=== PATIENT | female | born 1985 | race Asian ===

== ENCOUNTER 2019-12-30 11:36 | Outpatient (CLI) | payer SELFPAY ==
--- NOTE | 2019-12-30 17:04 | Ultrasound Report ---
Reason: TEST POSTIVE Procedure Date: 12/30/2019 Accession Number: [id number] / [id number] Procedure: US - OB First Trimester CPT Code: Final Report FULL RESULT: EXAM: FIRST TRIMESTER OBSTETRIC ULTRASOUND (Less than 11 weeks) EXAM DATE: 12/30/2019 11:45 AM. CLINICAL HISTORY: test positive. LMP: 10/21/2019. COMPARISONS: None. TECHNIQUE: Transabdominal and transvaginal ultrasound examination with static image documentation. CLINICAL DATES: EGA 10 weeks 0 days with MATEO 07/27/2020 based on LMP. ASSESSMENT: Gestational Sac: Single intrauterine. Mean gestational sac diameter: 35.9 mm = 8 weeks 6 days. Embryo: CRL (crown-rump length) 21 mm = 8 weeks 5 days. Cardiac activity: 171 beats per minute. Yolk sac: 3.9 mm. Amniotic fluid: Not accurately assessed at this gestational age. Early placenta: Not visible at this gestational age. Other: No perigestational fluid collection demonstrated. MATERNAL STRUCTURES: Uterus: Anteverted. Unremarkable. Cervix: Closed. Right Ovary/Adnexa: The ovary measures 3.4 x 2.5 x 2.2 cm, volume 9.8 cc. An echogenic structure in the ovary measures 1.4 x 1.1 x 1 cm. Left Ovary/Adnexa: The ovary measures 3.4 x 2.3 x 2 cm, volume 8.2 cc. Unremarkable. Free Fluid: None. Other: None. IMPRESSION: 1. Single viable intrauterine at EGA 8 weeks 5 days with MATEO 08/05/2020 based on crown-rump length, which is 1 week and 2 days discordant from clinical dates. 2. Assigned dating is MATEO 07/27/2020 based on LMP. 3. There is a 1.4 cm echogenic structure in the right ovary for which attention on follow-up is suggested. RADIA
== END 2019-12-30 11:37 | disposition home or self-care (01) ==
LOC: DI 11:36
PROVIDERS: ATTEND Obstetrics & Gynecology
DX: O34.81 Maternal care for other abnormalities of pelvic organs, first trimester (principal); N83.9 Noninflammatory disorder of ovary, fallopian tube and broad ligament, unspecified; Z3A.08 8 weeks gestation of pregnancy
CPT/HCPCS: 76801; 76817

== ENCOUNTER 2020-01-04 07:00 | Outpatient (CLI) | payer SELFPAY ==
[2020-01-04 20:54] LABS: TRICHOMONAS VAGINALIS DNA NEGATIVE (NEGATIVE)
== END 2020-01-04 23:59 | disposition home or self-care (01) ==
LOC: LAB.R 07:00
PROVIDERS: ATTEND Obstetrics & Gynecology
DX: Z34.90 Encounter for supervision of normal pregnancy, unspecified, unspecified trimester (principal)
CPT/HCPCS: 87491; 87591; 87661

== ENCOUNTER 2020-01-04 08:00 | Outpatient (CLI) | payer SELFPAY ==
[2020-01-04 11:49] LABS: MUDS CUTOFF CONCENTRATIONS CUTOFF CONC BELOW:
[2020-01-04 14:00] LABS: BASOPHILS # (AUTO) 0.1 10^3/uL (0.0-0.1); BASOPHILS % (AUTO) 0.4 %; EOSINOPHILS # (AUTO) 0.1 10^3/uL (0.0-0.7); EOSINOPHILS % (AUTO) 1.1 %; HGB - HEMOGLOBIN 13.1 g/dL (12.0-16.0); LYMPHOCYTES # (AUTO) 2.7 10^3/uL (1.5-3.5); LYMPHOCYTES % (AUTO) 20.4 %; MEAN CORPUSCULAR HEMOGLOBIN 27.9 pg (27.0-31.0); MEAN CORPUSCULAR HGB CONC 32.4 g/dL (32.0-36.0); MEAN CORPUSCULAR VOLUME 86.1 fL (81.0-99.0); MEAN PLATELET VOLUME 10.7 fL (7.9-10.8); MONOCYTES % (AUTO) 7.6 %; NEUTROPHILS # (AUTO) 9.3 10^3/uL (1.5-6.6); PLT - PLATELET COUNT 253 10^3/uL (130-450); RED BLOOD COUNT 4.69 10^6/uL (4.20-5.40); RED CELL DISTRIBUTION WIDTH 14.5 % (12.0-15.0); WHITE BLOOD COUNT 13.2 x10^3/uL (4.8-10.8)
[2020-01-04 14:35] LABS: BILIRUBIN,URINE NEGATIVE (NEGATIVE); GLUCOSE, URINE (UA) NEGATIVE (NEGATIVE); KETONES,URINE (UA) 15 mg/dL (NEGATIVE); LEUKOCYTE ESTERASE, URINE NEGATIVE (NEGATIVE); NITRITE,URINE NEGATIVE (NEGATIVE); OCCULT BLOOD,URINE MODERATE (NEGATIVE); PROTEIN,URINE NEGATIVE (NEGATIVE); UROBILINOGEN,URINE 0.2 (NORMAL) E.U./dL (NORMAL)
[2020-01-04 14:38] LABS: CLARITY,URINE CLEAR (CLEAR)
[2020-01-04 14:51] LABS: AMPHETAMINE SCREEN,URINE NEGATIVE (NEGATIVE); BENZODIAZEPINES SCREEN, URINE NEGATIVE (NEGATIVE); COCAINE SCREEN URINE NEGATIVE (NEGATIVE); METHADONE SCREEN, URINE NEGATIVE (NEGATIVE); METHAMPHETAMINES SCREEN, URINE NEGATIVE (NEGATIVE); OPIATE SCREEN, URINE NEGATIVE (NEGATIVE); OXYCODONE SCREEN, URINE NEGATIVE (NEGATIVE); PROPOXYPHENE SCREEN, URINE NEGATIVE (NEGATIVE); TRICYCLIC ANTIDEPRESSANT,URINE NEGATIVE (NEGATIVE)
[2020-01-04 14:54] LABS: BACTERIA,URINE Few /HPF (None Seen); RBC,URINE 0-5 /HPF (0-5); SQUAMOUS EPITHELIAL CELL,UR FEW Squamous (<= Few)
[2020-01-04 15:20] LABS: HB2 TOTAL 13.8 g/dL; HEMOGLOBIN A1C 0.47 g/dL; HEMOGLOBIN A1C % 5.3 % (4.6-6.2)
[2020-01-05 10:14] LABS: HIV AG/AB 4TH GEN NON-REACTIVE (NON-REACTIVE)
[2020-01-05 11:24] LABS: HEPATITIS B SURFACE ANTIGEN NON-REACTIVE (NON-REACTIVE)
[2020-01-05 12:10] LABS: HEPATITIS C ANTIBODY NON-REACTIVE (NON-REACTIVE)
== END 2020-01-04 23:59 | disposition home or self-care (01) ==
LOC: LAB.WCP 08:00
PROVIDERS: ATTEND Obstetrics & Gynecology
DX: O99.280 Endocrine, nutritional and metabolic diseases complicating pregnancy, unspecified trimester (principal); E28.2 Polycystic ovarian syndrome; Z3A.00 Weeks of gestation of pregnancy not specified
CPT/HCPCS: 36415; 80306; 81001; 81599; 83036; 85025; 86592; 86762; 86803; 86850; 86900; 86901; 87086; 87340; 87389

== ENCOUNTER 2020-02-28 16:55 | Outpatient (CLI) | payer OTHER | END 2020-02-28 16:56 | disposition home or self-care (01) | LOC: LAB 16:55 | PROVIDERS: ATTEND Obstetrics & Gynecology | DX: Z34.90 Encounter for supervision of normal pregnancy, unspecified, unspecified trimester (principal) | CPT/HCPCS: 36415; 81511; 81599 ==

== ENCOUNTER 2020-03-18 12:06 | Outpatient (CLI) | payer OTHER ==
--- NOTE | 2020-03-19 00:05 | Ultrasound Report ---
PROCEDURE: OB Detailed Eval INDICATIONS: SUPERVISION OUTSIDE/PRIOR DATING DATA: Last menstrual period (LMP): 10/21/2019. LMP-based estimated date of delivery (MATEO): 07/27/2020. First dating scan (date and location): 12/30/2019. Estimated date of delivery (MATEO) from first dating scan: 08/05/2020. TECHNIQUE: Real-time scanning was performed of the fetus, with image documentation and biometric measurements. Endovaginal scanning: Not performed. COMPARISON: Ultrasound dated 12/30/2019. FINDINGS: Echogenic lesion in the right ovary measures approximately 15 x 12 x 12 mm, stable in size when dino red to the ultrasound from 12/30/2019, possibly representing a small dermoid cyst. A smaller echogenic lesion in the left ovary measures 6 x 6 x 15 mm and also represent a small dermoid cyst. General: A single living intrauterine gestation is present. Presentation: Cephalic Placenta: Placental position is anterior, without previa. Amniotic fluid index: 17.6 cm, normal for gestational age. heart rate: 137 beats per minute. Maternal cervical canal: 4.9 cm long; normal length is 2.5 cm or more. biometrics: Biparietal diameter: 4.8 cm, 20 weeks 3 days Head circumference: 17.7 cm, 20 weeks 1 day Abdominal circumference: 14.8 cm, 20 weeks 0 day Femur length: 3.3 cm, 20 weeks 1 day Estimated gestational age from initial scan: 20 weeks 0 days. Composite gestational age from present scan: 20 weeks 2 days Estimated weight and percentile: 334 g, 53rd percentile Measurement variability in biometric dating: +/- 10 days from 12-20 weeks gestation, +/- 2 weeks from 20-30 weeks gestation, +/- 3 weeks at 30 weeks gestation or later. Anatomic survey: Neuro: Ventricles are normal at less than 10 mm. Cisterna magna is normal at 3-11 mm. Cerebellum i s normal in size and morphology. Nuchal skin fold: Normal at less than 6 mm between 14 and 20 weeks gestational age. Face: Nose and lips, facial profile are normal. Spine: No evidence for spina bifida. Heart: 4-chambered heart is present. The left or right ventricular outflow tracks are suboptimally visualized. heart rate 136 bpm. Diaphragm: Diaphragm is not evaluated. Stomach: Left-sided stomach is present. Kidneys: No hydronephrosis. Normal is less than 5 mm in 2nd trimester, less than 7 mm in 3rd trimester. Cord: 3 vessel cord has orthotopic insertion. Bladder: Normal in size. Extremities: All 4 extremities are visualized. IMPRESSION: 1. Single live intrauterine with estimated size consistent with dates from first trimester ultrasound. 2. chest and diaphragm not assessed on this exam. In addition, the right and left ventricular outflow tracts are suboptimally visualized. Recommend follow-up examination with attention to these s tructures. 3. Echogenic lesions in the bilateral ovaries are nonspecific but may represent dermoid cysts. The r ight-sided lesion has not significantly changed in size when compared to the prior ultrasound from . Continued attention on follow-up exams is suggested. Reviewed by: Derek Kolb MD on 03/19/2020 12:04 AM PDT Approved by: Derek Kolb MD on 03/19/2020 12:04 AM PDT Station ID: [id number]
== END 2020-03-18 12:07 | disposition home or self-care (01) ==
LOC: DI 12:06
PROVIDERS: ATTEND Obstetrics & Gynecology
DX: Z34.90 Encounter for supervision of normal pregnancy, unspecified, unspecified trimester (principal)
CPT/HCPCS: 76811

== ENCOUNTER 2020-04-20 16:18 | Outpatient (CLI) | payer OTHER ==
--- NOTE | 2020-04-21 09:49 | Ultrasound Report ---
PROCEDURE: OB F/U or Repeat INDICATIONS: SUPERVISION OF NORMAL OUTSIDE/PRIOR DATING DATA: Last menstrual period (LMP): 10/21/2019. LMP-based estimated date of delivery (MATEO): 07/27/2020. First dating scan (date and location): 12/30/2019. Estimated date of delivery (MATEO) from first dating scan: 08/05/2020. TECHNIQUE: Real-time scanning was performed of the fetus, with image documentation and biometric measurements. Endovaginal scanning: Not performed COMPARISON: 03/18/2020 FINDINGS: General: A single living intrauterine gestation is present. Presentation: Cephalic Placenta: Placental position is anterior, without previa. Amniotic fluid index: 18.1 cm, 80th percentile for gestational age. heart rate: 136 beats per minute. Maternal cervical canal: 4.5 cm long; normal length is 2.5 cm or more. Estimated gestational age from initial scan: 24 weeks, 5 days. Other: chest, diaphragm, four-chamber heart, and cardiac outflow tracts were seen on the study and appear within normal. Maternal ovaries redemonstrated small echogenic foci of stable size. IMPRESSION: 1. Normal heart, outflow tracts, and diaphragm. 2. Stable size echogenic foci, one in each ovary, dermoid versus calcification. Reviewed by: Yuliya Walton MD on 04/21/2020 9:48 AM PDT Approved by: Yuliya Walton MD on 04/21/2020 9:48 AM PDT Station ID: [id number]
== END 2020-04-20 16:19 | disposition home or self-care (01) ==
LOC: DI 16:18
PROVIDERS: ATTEND Obstetrics & Gynecology
DX: Z34.90 Encounter for supervision of normal pregnancy, unspecified, unspecified trimester (principal)
CPT/HCPCS: 76816

== ENCOUNTER 2020-05-06 15:32 | Outpatient (CLI) | payer OTHER ==
[2020-05-06 15:57] LABS: BASOPHILS # (AUTO) 0.1 10^3/uL (0.0-0.1); BASOPHILS % (AUTO) 0.3 %; EOSINOPHILS # (AUTO) 0.1 10^3/uL (0.0-0.7); EOSINOPHILS % (AUTO) 0.7 %; HGB - HEMOGLOBIN 11.9 g/dL (12.0-16.0); LYMPHOCYTES # (AUTO) 2.4 10^3/uL (1.5-3.5); LYMPHOCYTES % (AUTO) 16.4 %; MEAN CORPUSCULAR HEMOGLOBIN 29.8 pg (27.0-31.0); MEAN CORPUSCULAR HGB CONC 33.4 g/dL (32.0-36.0); MEAN PLATELET VOLUME 9.6 fL (7.9-10.8); MONOCYTES # (AUTO) 1.1 10^3/uL (0.0-1.0); MONOCYTES % (AUTO) 7.6 %; NEUTROPHILS # (AUTO) 10.7 10^3/uL (1.5-6.6); NEUTROPHILS % (AUTO) 73.2 %; PLT - PLATELET COUNT 234 10^3/uL (130-450); RED CELL DISTRIBUTION WIDTH 13.2 % (12.0-15.0); WHITE BLOOD COUNT 14.7 x10^3/uL (4.8-10.8)
== END 2020-05-06 15:33 | disposition home or self-care (01) ==
LOC: LAB 15:32
PROVIDERS: ATTEND Obstetrics & Gynecology
DX: Z34.90 Encounter for supervision of normal pregnancy, unspecified, unspecified trimester (principal)
CPT/HCPCS: 36415; 85025

== ENCOUNTER 2020-07-05 09:06 | Outpatient (CLI) | payer OTHER ==
--- NOTE | 2020-07-05 10:46 | Ultrasound Report ---
PROCEDURE: OB F/U or Repeat INDICATIONS: GESTATIONAL DIABETES OUTSIDE/PRIOR DATING DATA: Last menstrual period (LMP): 10/21/2019. LMP-based estimated date of delivery (MATEO): 07/27/2020. First dating scan (date and location): 12/30/2019. Estimated date of delivery (MATEO) from first dating scan: 08/05/2020. TECHNIQUE: Real-time scanning was performed of the fetus, with image documentation and biometric measurements. Endovaginal scanning: Not needed COMPARISON: All prior OB ultrasound studies for this . FINDINGS: General: A single living intrauterine gestation is present. Presentation: Vertex Placenta: Placental position is anterior, without previa. Amniotic fluid index: 27.5 cm, polyhydramnios for gestational age. heart rate: 131 beats per minute. Maternal cervical canal: 4.0 cm long; normal length is 2.5 cm or more. biometrics: Biparietal diameter: 9.0 cm, 36 weeks 4 days Head circumference: 32.8 cm, 37 weeks 1 day Abdominal circumference: 31.6 cm, 35 weeks 4 days Femur length: 6.7 cm, 34 weeks 2 days Estimated gestational age from initial scan: 35 weeks 4 days. Composite gestational age from present scan: 35 weeks 4 days Estimated weight and percentile: 2696 g, 47.2 percentile Measurement variability in biometric dating: +/- 10 days from 12-20 weeks gestation, +/- 2 weeks from 20-30 weeks gestation, +/- 3 weeks at 30 weeks gestation or more. Other: No anomaly seen.. IMPRESSION: Appropriate interval growth, no anomaly seen. Polyhydramnios, with current estimated amniotic fluid index at 27.5 cm, at the upper 98th percentile for current gestational age. Findings called to the nurse Garay for the ordering [facility] er. Reviewed by: Delfino Marvin MD on 07/05/2020 10:45 AM PST Approved by: Delfino Marvin MD on 07/05/2020 10:45 AM PST Station ID: [id number]
== END 2020-07-05 09:07 | disposition home or self-care (01) ==
LOC: DI 09:06
PROVIDERS: ATTEND Obstetrics & Gynecology
DX: O40.3XX0 Polyhydramnios, third trimester, not applicable or unspecified (principal); Z3A.35 35 weeks gestation of pregnancy

== ENCOUNTER 2020-07-08 08:00 | Outpatient (CLI) | payer OTHER | END 2020-07-08 23:59 | disposition home or self-care (01) | LOC: LAB.R 08:00 | PROVIDERS: ATTEND Obstetrics & Gynecology | DX: Z36.85 Encounter for antenatal screening for Streptococcus B (principal) | CPT/HCPCS: 87081; 87797 ==

== ENCOUNTER 2020-07-08 10:33 | Outpatient (CLI) | payer OTHER ==
[2020-07-08 11:22] VITALS: BP 122/88
--- NOTE | 2020-07-09 09:29 | PROCEDURE REPORT ---
- HPI Diagnosis/Indication for NST: Gestational Diabetes Current EDU 08/05/20 Gestation 36 Weeks and 0 Days 2 Para 0 Vital Signs Temperature 98.4 F 07/08/20 10:46 Heart Rate 105 H 07/08/20 10:46 Respiratory Rate 16 07/08/20 10:46 Blood Pressure 130/89 H 07/08/20 10:46 O2 Saturation 98 07/08/20 10:46 Temperature 98.4 F 07/08/20 10:46 Heart Rate 105 H 07/08/20 10:46 Respiratory Rate 16 07/08/20 10:46 Blood Pressure 122/88 H 07/08/20 11:22 O2 Saturation 98 07/08/20 10:46 - NST Procedure NST Procedure Start Date 07/08/20 Start Time 10:42 Stop Time 11:42 Vibroacoustic Stimulation Used No Patient States Movement Yes - Results and Plan Findings/Impression: Category 1 NST [place] 2 contractions in 1h Plan: continue surveillance outpatient
== END 2020-07-08 11:55 | disposition home or self-care (01) ==
LOC: WFO 10:33 → FBP 10:35 → WFO 11:55
PROVIDERS: ATTEND Obstetrics & Gynecology
DX: O24.419 Gestational diabetes mellitus in pregnancy, unspecified control (principal); Z3A.36 36 weeks gestation of pregnancy
CPT/HCPCS: 59025

== ENCOUNTER 2020-07-12 14:33 | Outpatient (CLI) | payer OTHER ==
[2020-07-12 14:52] VITALS: BP 123/61
--- NOTE | 2020-07-13 08:41 | PROCEDURE REPORT ---
- HPI Diagnosis/Indication for NST: Gestational Diabetes Current EDU 08/05/20 Gestation 36 Weeks and 4 Days 2 Para 0 Vital Signs Temperature 97.6 F L 07/12/20 14:46 Heart Rate 83 07/12/20 14:46 Respiratory Rate 16 07/12/20 14:46 Blood Pressure 123/61 07/12/20 14:46 O2 Saturation 100 07/12/20 14:46 Temperature 97.6 F L 07/12/20 14:46 Heart Rate 83 07/12/20 14:46 Respiratory Rate 16 07/12/20 14:46 Blood Pressure 123/61 07/12/20 14:46 O2 Saturation 100 07/12/20 14:46 - NST Procedure NST Procedure Start Date 07/12/20 Start Time 14:43 Stop Time 15:24 Vibroacoustic Stimulation Used No Patient States Movement Yes - Results and Plan Findings/Impression: Baseline 125bpm Variability moderate Acceleration present Declelerations absent [place] irritable Impression: type A2GDM Plan: ongoing outpt surveillance
== END 2020-07-12 15:35 | disposition home or self-care (01) ==
LOC: WFO 14:33 → FBP 14:35 → WFO 15:35
PROVIDERS: ATTEND Obstetrics & Gynecology
DX: O24.410 Gestational diabetes mellitus in pregnancy, diet controlled (principal); Z3A.36 36 weeks gestation of pregnancy
CPT/HCPCS: 59025

== ENCOUNTER 2020-07-15 08:49 | Outpatient (CLI) | payer OTHER ==
--- NOTE | 2020-07-15 10:52 | Ultrasound Report ---
PROCEDURE: OB Limited INDICATIONS: WEEKLY conner FOR GESTATIONAL DIABETES OUTSIDE/PRIOR DATING DATA: Last menstrual period (LMP): 10/21/2019. LMP-based estimated date of delivery (MATEO): 07/27/2020. First dating scan (date and location): 12/30/2019. Estimated date of delivery (MATEO) from first dating scan: 08/05/2020. TECHNIQUE: Real-time scanning was performed of the fetus, with image documentation. Endovaginal scanning: Not performed COMPARISON: 12/30/19, 07/05/2020 FINDINGS: A single living intrauterine gestation is present. Presentation: Cephalic Placenta: Placental position is anterior, without previa. Amniotic fluid index: 19.6 cm, 82nd percentile, within normal for gestational age. Largest pocket is 7.9 cm. heart rate: 128 beats per minutes. Maternal cervical canal: 3.9 cm long; normal length is 2.5 cm or more. Estimated gestational age from initial scan: 37 weeks, 0 days. Left renal pelviectasis measuring between 4 and 6 mm. urinary bladder is also fluid-fille d and distended. Bilateral maternal ovarian echogenic foci are redemonstrated IMPRESSION: 1. Single living intrauterine . 2. Amniotic fluid index of 19.6 cm, 82nd percentile for gestational age. Reviewed by: Yuliya Walton MD on 07/15/2020 10:51 AM PST Approved by: Yuliya Walton MD on 07/15/2020 10:51 AM PST Station ID: [id number]
== END 2020-07-15 08:50 | disposition home or self-care (01) ==
LOC: DI 08:49
PROVIDERS: ATTEND Obstetrics & Gynecology
DX: O09.90 Supervision of high risk pregnancy, unspecified, unspecified trimester (principal); O24.419 Gestational diabetes mellitus in pregnancy, unspecified control; Z3A.37 37 weeks gestation of pregnancy

== ENCOUNTER 2020-07-15 09:25 | Outpatient (CLI) | payer OTHER ==
[2020-07-15 10:16] VITALS: BP 137/73
--- NOTE | 2020-07-15 19:34 | PROCEDURE REPORT ---
- HPI Diagnosis/Indication for NST: Gestational Diabetes Current EDU 08/05/20 Gestation 37 Weeks and 0 Days 2 Para 0 Vital Signs Temperature 97.7 F 07/15/20 10:13 Heart Rate 95 07/15/20 10:13 Respiratory Rate 16 07/15/20 10:13 Blood Pressure 137/73 H 07/15/20 10:13 Temperature 97.7 F 07/15/20 10:13 Heart Rate 95 07/15/20 10:13 Respiratory Rate 16 07/15/20 10:13 Blood Pressure 137/73 H 07/15/20 10:13 O2 Saturation - NST Procedure NST Procedure Start Date 07/15/20 Start Time 10:11 Stop Time 10:35 Vibroacoustic Stimulation Used No Patient States Movement Yes - Results and Plan Findings/Impression: [place] 120bpm, noderate LTV, accelspresent, decels absent, toco about q10min A/P: A2GDM, category 1 NST, plan for ongoing outpatient surveillance
== END 2020-07-15 10:40 | disposition home or self-care (01) ==
LOC: WFO 09:25 → FBP 09:27 → WFO 10:40
PROVIDERS: ATTEND Obstetrics & Gynecology
DX: O24.415 Gestational diabetes mellitus in pregnancy, controlled by oral hypoglycemic drugs (principal); Z3A.37 37 weeks gestation of pregnancy; O99.891 Other specified diseases and conditions complicating pregnancy; R03.0 Elevated blood-pressure reading, without diagnosis of hypertension; O09.90 Supervision of high risk pregnancy, unspecified, unspecified trimester; O09.523 Supervision of elderly multigravida, third trimester; Z87.59 Personal history of other complications of pregnancy, childbirth and the puerperium; Z79.84 Long term (current) use of oral hypoglycemic drugs
CPT/HCPCS: 36415; 59025; 80053; 82570; 84156; 85027

== ENCOUNTER 2020-07-15 14:35 | Outpatient (CLI) | payer OTHER ==
[2020-07-15 14:53] LABS: HGB - HEMOGLOBIN 11.8 g/dL (12.0-16.0); MEAN CORPUSCULAR HEMOGLOBIN 29.5 pg (27.0-31.0); MEAN CORPUSCULAR HGB CONC 33.2 g/dL (32.0-36.0); MEAN CORPUSCULAR VOLUME 88.8 fL (81.0-99.0); MEAN PLATELET VOLUME 10.1 fL (7.9-10.8); RED CELL DISTRIBUTION WIDTH 14.4 % (12.0-15.0); WHITE BLOOD COUNT 10.4 x10^3/uL (4.8-10.8)
[2020-07-15 15:04] LABS: ALBUMIN 3.3 g/dL (3.2-5.5); ALBUMIN/GLOBULIN RATIO 0.8 (1.0-2.2); BILIRUBIN,TOTAL 0.3 mg/dL (0.2-1.0); CALCIUM 10.1 mg/dL (8.5-10.3); CREATININE 0.8 mg/dL (0.4-1.0); TOTAL PROTEIN 7.2 g/dL (6.7-8.2)
[2020-07-15 15:22] LABS: CREATININE,URINE 44.3 mg/dL; PROTEIN/CREATININE RATIO,URINE 0.2 (<=0.2)
== END 2020-07-15 14:36 | disposition home or self-care (01) ==
LOC: LAB 14:35
PROVIDERS: ATTEND Obstetrics & Gynecology
DX: R03.0 Elevated blood-pressure reading, without diagnosis of hypertension (principal)
CPT/HCPCS: 36415; 80053; 82570; 84156; 85027

== ENCOUNTER 2020-07-19 14:28 | Outpatient (CLI) | payer OTHER ==
[2020-07-19 14:50] VITALS: BP 138/84
--- NOTE | 2020-07-20 09:17 | PROCEDURE REPORT ---
- HPI Diagnosis/Indication for NST: Gestational Diabetes Current EDU 08/05/20 Gestation 37 Weeks and 4 Days 2 Para 0 Vital Signs Temperature 97.2 F L 07/19/20 14:41 Heart Rate 92 07/19/20 14:41 Respiratory Rate 18 07/19/20 14:41 Blood Pressure 138/84 H 07/19/20 14:41 O2 Saturation 99 07/19/20 14:41 Temperature 97.2 F L 07/19/20 14:41 Heart Rate 92 07/19/20 14:41 Respiratory Rate 18 07/19/20 14:41 Blood Pressure 138/84 H 07/19/20 14:41 O2 Saturation 99 07/19/20 14:41 - NST Procedure NST Procedure Start Date 07/19/20 Start Time 14:38 Stop Time 15:04 Vibroacoustic Stimulation Used Yes Patient States Fet EFM 135 mod mika 15x15 accels no decels TOCO: irritable - Results and Plan Findings/Impression: Pt is a 34 yo at 37+4 wga with GDM here for NST Cat I tracing Cint with twice weekly NST and weelkly MARINA IOL at 39 wga DX: gestational diabetes
== END 2020-07-19 15:10 | disposition home or self-care (01) ==
LOC: WFO 14:28 → FBP 14:30 → WFO 15:10
PROVIDERS: ATTEND Obstetrics & Gynecology
DX: O24.419 Gestational diabetes mellitus in pregnancy, unspecified control (principal); Z3A.37 37 weeks gestation of pregnancy
CPT/HCPCS: 59025

== ENCOUNTER 2020-07-21 11:47 | Outpatient (CLI) | payer OTHER ==
[2020-07-21 12:10] VITALS: BP 123/71
--- NOTE | 2020-07-25 21:07 | PROCEDURE REPORT ---
- HPI Diagnosis/Indication for NST: Gestational Diabetes Current EDU 08/05/20 Gestation 37 Weeks and 6 Days 2 Para 0 Vital Signs Temperature 98.2 F 07/21/20 11:55 Heart Rate 95 07/21/20 11:55 Respiratory Rate 18 07/21/20 11:55 Blood Pressure 127/90 H 07/21/20 11:55 O2 Saturation 100 07/21/20 11:55 Temperature 98.2 F 07/21/20 11:55 Heart Rate 95 07/21/20 11:55 Respiratory Rate 18 07/21/20 11:55 Blood Pressure 123/71 07/21/20 12:09 O2 Saturation 100 07/21/20 11:55 - NST Procedure NST Procedure Start Date 07/21/20 Start Time 11:53 Stop Time 12:19 Vibroacoustic Stimulation Used No Patient States Movement Yes: decreased EFM 130 mod mika 15x15 accels no decels TOCO: quiet - Results and Plan Findings/Impression: 34 yo at 37+6 wga with affected by A2DM here for NST Cat I tracing Cont with twice weekly NST and weekly MARINA IOL at 39 wga DX: IUP at 37+6 wga A2DM
== END 2020-07-21 12:25 | disposition home or self-care (01) ==
LOC: WFO 11:47 → FBP 11:49 → WFO 12:25
PROVIDERS: ATTEND Obstetrics & Gynecology
DX: O24.419 Gestational diabetes mellitus in pregnancy, unspecified control (principal); Z3A.37 37 weeks gestation of pregnancy
CPT/HCPCS: 59025

== ENCOUNTER 2020-07-22 09:42 | Outpatient (CLI) | payer OTHER ==
--- NOTE | 2020-07-22 15:34 | Ultrasound Report ---
PROCEDURE: OB Limited INDICATIONS: GESTATIONAL DIABETES OUTSIDE/PRIOR DATING DATA: Last menstrual period (LMP): 10/21/2019. LMP-based estimated date of delivery (MATEO): 07/27/2020. First dating scan (date and location): 12/30/2019. Estimated date of delivery (MATEO) from first dating scan: 08/05/2020. TECHNIQUE: Real-time scanning was performed of the fetus, with image documentation. Endovaginal scanning: Not needed COMPARISON: All prior OB ultrasound studies for this FINDINGS: A single living intrauterine gestation is present. Presentation: Cephalic Placenta: Placental position is anterior, without previa. Amniotic fluid index: 24.0 cm, upper 94th percentile for gestational age. heart rate: 139 beats per minutes. Maternal cervical canal: Not well seen due to positioning, vertex. IMPRESSION: Limited study at clinician request, amniotic fluid index is normal at 24 cm, at the uppe r 90th 4th percentile. No suspicion for premature rupture of membranes. Reviewed by: Delfino Marvin MD on 07/22/2020 3:33 PM PST Approved by: Delfino Marvin MD on 07/22/2020 3:33 PM PST Station ID: [id number]
== END 2020-07-22 09:43 | disposition home or self-care (01) ==
LOC: DI 09:42
PROVIDERS: ATTEND Obstetrics & Gynecology
DX: O24.419 Gestational diabetes mellitus in pregnancy, unspecified control (principal); Z20.828 Contact with and (suspected) exposure to other viral communicable diseases

== ENCOUNTER 2020-07-24 08:02 | Inpatient (IN) | payer OTHER ==
[2020-07-24] MEDS ORDERED: ACETAMINOPHEN 325 MG TABLET PO PRN (08:37)
[2020-07-24] MEDS ORDERED: CARBOPROST TROMETHAMINE 250 MCG/ML AMP IM PRN (08:37)
[2020-07-24] MEDS ORDERED: SODIUM CHLORIDE FLUSH 0.9% 10 ML SYRINGE IVP PRN (08:37)
[2020-07-24] MEDS ORDERED: TRANEXAMIC ACID 1,000 MG in SODIUM CHLORIDE 0.9% 100ML 100 ML IV PRN (08:37)
[2020-07-24] MEDS ORDERED: ONDANSETRON 4 MG/2 ML VIAL IVP PRN (08:37)
[2020-07-24] MEDS ORDERED: OXYTOCIN 10 UNIT/ML VIAL IM PRN (08:37)
[2020-07-24] MEDS ORDERED: LIDOCAINE-MPF 1% 30 ML VIAL ID PRN (08:37)
[2020-07-24] MEDS ORDERED: fentaNYL 100 MCG/2 ML VIAL IVP PRN (08:37)
[2020-07-24] MEDS ORDERED: OXYTOCIN/SODIUM CHLORIDE 500 ML IV PRN (08:37)
[2020-07-24] MEDS ORDERED: miSOPROStoL 200 MCG TABLET BC PRN (08:37)
[2020-07-24] MEDS ORDERED: METHYLERGONOVINE 0.2 MG/ML VIAL IM PRN (08:37)
[2020-07-24 08:53] LABS: PROTEIN/CREATININE RATIO,URINE 0.2 (<=0.2)
[2020-07-24] MEDS ORDERED: SODIUM CHLORIDE FLUSH 0.9% 10 ML SYRINGE IVP SCH (09:00)
[2020-07-24] MEDS ORDERED: miSOPROStoL 100 MCG TABLET VG SCH (09:00)
[2020-07-24 09:04] LABS: BASOPHILS % (AUTO) 0.3 %; EOSINOPHILS # (AUTO) 0.1 10^3/uL (0.0-0.7); EOSINOPHILS % (AUTO) 0.6 %; HGB - HEMOGLOBIN 11.9 g/dL (12.0-16.0); LYMPHOCYTES # (AUTO) 1.8 10^3/uL (1.5-3.5); LYMPHOCYTES % (AUTO) 16.8 %; MEAN CORPUSCULAR HEMOGLOBIN 30.2 pg (27.0-31.0); MEAN CORPUSCULAR HGB CONC 34.2 g/dL (32.0-36.0); MEAN CORPUSCULAR VOLUME 88.3 fL (81.0-99.0); MEAN PLATELET VOLUME 10.8 fL (7.9-10.8); MONOCYTES # (AUTO) 0.9 10^3/uL (0.0-1.0); MONOCYTES % (AUTO) 8.2 %; NEUTROPHILS # (AUTO) 7.9 10^3/uL (1.5-6.6); NEUTROPHILS % (AUTO) 73.5 %; PLT - PLATELET COUNT 228 10^3/uL (130-450); RED BLOOD COUNT 3.94 10^6/uL (4.20-5.40); RED CELL DISTRIBUTION WIDTH 14.1 % (12.0-15.0); WHITE BLOOD COUNT 10.8 x10^3/uL (4.8-10.8)
[2020-07-24 09:16] LABS: ALBUMIN 3.3 g/dL (3.2-5.5); ALBUMIN/GLOBULIN RATIO 0.8 (1.0-2.2); BILIRUBIN,TOTAL 0.5 mg/dL (0.2-1.0); CALCIUM 10.1 mg/dL (8.5-10.3); CREATININE 0.7 mg/dL (0.4-1.0); TOTAL PROTEIN 7.3 g/dL (6.7-8.2); URIC ACID 6.2 mg/dL (2.6-7.2)
[2020-07-24] MEDS: miSOPROStoL 100 MCG TABLET BC SCH ×3 (09:45→18:36)
--- NOTE | 2020-07-24 12:28 | PREOP HISTORY & PHYSICAL ---
DATE OF SERVICE: 07/24/2020 Physician: Mat York MD IDENTIFICATION: Patient is a 34-year-old G2, P0 female whose EDC is 08/05/2020. This makes her 38 weeks and 2 days. This was determined with early examination. CHIEF COMPLAINT: Gestational diabetes as well as gestational hypertension. HISTORY OF PRESENT ILLNESS: Patient has a history of polycystic ovary disease. She conceived on metformin. She continued to take her metformin throughout the first part of her and started doing her blood sugar testing. During this time, she was noted to have the potential for gestational diabetes, so she continued the metformin, which she is currently taking 500 mg twice daily. She relates that the vast majority of her blood sugars have been within the normal limits. At her last visits, she was noted to have elevated blood pressures. For this reason, it was decided to have an induction of labor. She postponed this for arrival of her mother on 07/23/2020. She monitored her blood pressures at home during this time. PAST MEDICAL HISTORY: Positive for gestational diabetes as well as polycystic ovary disease. SURGICAL HISTORY: Bilateral ovarian cystectomy in 2018. Wrist fracture in 1993. Left eye correction in 1991. CURRENT MEDICATIONS: Metformin 500 mg p.o. b.i.d., as well as vitamins. ALLERGIES: SEASONAL and NICKEL. HABITS: Denies use of alcohol, tobacco, or street or addictive drugs. SOCIAL HISTORY: Patient is . 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 FAMILY HISTORY: Strongly positive for high blood pressure as well as diabetes. PHYSICAL EXAMINATION GENERAL: Patient is well-developed, well-nourished female. She is in no acute distress at this time. VITAL SIGNS: Within normal limits. HEENT: Pupils equal, round. Extraocular muscles are intact. NECK: Thyroid is not palpably enlarged. HEART: Regular rate and rhythm without murmurs. LUNGS: Lung hou are clear without rales, or wheezes. ABDOMEN: Gravid, measuring 40 cm. Cervix at this time is closed, about 40% effaced, and floating. IMPRESSION 1. A 34-year-old 2, para 1 at 38 and 2. 2. Gestational diabetes, well controlled taking metformin. 3. Gestational hypertension. PLAN: At this particular time, we are planning to do a cervical ripening with misoprostol. Will continue to work towards delivery. This may necessitate the use of a Guo bulb. TD: 07/24/2020 08:56 ISMAEL
[2020-07-24] MEDS ORDERED: IRON DEXTRAN 1,000 MG in SODIUM CHLORIDE 0.9% 250 ML IV SCH (14:30)
[2020-07-24] MEDS: metFORMIN 500 MG TABLET PO SCH (18:38)
--- NOTE | 2020-07-24 18:40 | PROVIDER PROGRESS NOTE ---
Labor Progress Note - Uterine Monitoring Uterine Monitoring Mode: positive: External toco Contraction Frequency (min/apart): 4-6 Contraction Intensity: positive: Mild - Monitoring Monitor Mode: positive: External ultrasound Heart Rate Baseline: 125 Heart Rate Variability: positive: Moderate (6-25 bmp) Accelerations: positive: Present, 15x15 Decelerations: positive: None Strip Review: positive: Category I (rest withepisods of activity) - Vaginal Exam Dilation (in cm): 0 Effacement (%): 50 Station: -3 Cervical Position: Posterior - Labor Progress Note Labor Progress Note/Additional Text: Cx not open uet. Continue misoprostal
[2020-07-24 20:32] LABS: HEMOGLOBIN A1c% 5.5 % (4.27-6.07)
[2020-07-25] MEDS: LACTATED RINGERS 1,000 ML IV SCH ×2 (01:21→12:20)
[2020-07-25] MEDS ORDERED: fentaNYL 100 MCG/2 ML VIAL ONE (03:41)
[2020-07-25] MEDS ORDERED: ROPIVACAINE 0.2% PF 20ML VIAL ONE (03:41)
[2020-07-25] MEDS ORDERED: ROPIVACAINE 0.2% 200 MG/100 ML BAG EP ONE (03:41)
--- NOTE | 2020-07-25 04:17 | ANESTHESIA ---
Pre-Anesthesia VS, & Labs - Diagnosis Active Labor - Procedure Labor Epidural Vital Signs: Temp Pulse Resp BP Pulse Ox 36.6 C 71 18 137/92 H 100 07/25/20 00:28 07/24/20 23:00 07/24/20 23:00 07/24/20 23:00 07/24/20 20:20 Height: 5 ft 7 in Weight (kg): 88.451 kg Body Mass Index: 30.5 BMI Classification: Obese - NPO Other (Fluids) - Is Patient ?: Not Applicable Estimated Due Date:: 08/06/20 - Lab Results Current Lab Results: Laboratory Tests 07/24/20 21:47: POC Whole Bld Glucose 131 H 07/24/20 18:21: POC Whole Bld Glucose 108 H 07/24/20 14:22: POC Whole Bld Glucose 113 H 07/24/20 08:45: Estimat Average Glucose 111 H, Hemoglobin A1c % 5.5 07/24/20 08:45: Blood Type O POSITIVE, Antibody Screen NEGATIVE 07/24/20 08:45: Sodium 137, Potassium 3.5, Chloride 106, Carbon Dioxide 20 L, Anion Gap 11.0, BUN 19, Creatinine 0.7, Estimated GFR (MDRD) 96, Glucose 110 H, Uric Acid 6.2, Calcium 10.1, Total Bilirubin 0.5, AST 19, ALT 14, Alkaline Phosphatase 109, Total Protein 7.3, Albumin 3.3, Globulin 4.0, Albumin/Globulin Ratio 0.8 L 07/24/20 08:45: WBC 10.8, RBC 3.94 L, Hgb 11.9 L, Hct 34.8 L, MCV 88.3, MCH 30.2, MCHC 34.2, RDW 14.1, Plt Count 228, MPV 10.8, Neut # (Auto) 7.9 H, Lymph # (Auto) 1.8, Granite # (Auto) 0.9, Eos # (Auto) 0.1, Baso # (Auto) 0.0, Absolute Nucleated RBC 0.00, Nucleated RBC % 0.0 Fish Bones: 07/24/20 08:45 07/24/20 08:45 Home Medications and Allergies Active Medications Acetaminophen (Acetaminophen 325 Mg Tablet) 650 mg PO Q6H PRN PRN Reason: Pain or Fever Carboprost Tromethamine (Carboprost Tromethamine 250 Mcg/Ml Amp) 250 mcg IM Q15M PRN PRN Reason: Step 4: Hemorrhage protocol Stop: 07/29/20 08:40 Fentanyl (Fentanyl 100 Mcg/2 Ml Vial) 50 mcg IVP Q1H PRN PRN Reason: PAIN Last Admin: 07/25/20 01:29 Dose: 50 mcg Documented by: Lactated Ringer's (Lr) 1,000 mls @ 100 mls/hr IV .Q10H [facility] Last Admin: 07/25/20 01:21 Dose: 100 mls/hr Documented by: Oxytocin/Sodium Chloride (Pitocin/Sodium Chloride) 500 mls @ 999 mls/hr IV PRN PRN; Protocol PRN Reason: POST- HEMORR PREVENTION Stop: 07/29/20 08:40 Tranexamic Acid 1,000 mg/ (Sodium Chloride) 110 mls @ 660 mls/hr IV .ONCE PRN PRN Reason: EBL >1200mL and within 3hr Stop: 07/29/20 08:40 Lidocaine HCl (Lidocaine-Mpf 1% 30 Ml Vial) 30 ml ID .ONCE PRN PRN Reason: PERINEAL REPAIR Stop: 07/29/20 08:40 Metformin HCl (Metformin 500 Mg Tablet) 500 mg PO BIDWM [facility] Last Admin: 07/24/20 18:38 Dose: 500 mg Documented by: Methylergonovine Maleate (Methylergonovine 0.2 Mg/Ml Vial) 0.2 mg IM .ONCE PRN PRN Reason: Step 2: Hemorrhage protocol Stop: 07/29/20 08:40 Misoprostol (Misoprostol 200 Mcg Tablet) 800 mcg BC .ONCE PRN PRN Reason: Step 3: Hemorrhage protocol Stop: 07/29/20 08:40 Misoprostol (Misoprostol 100 Mcg Tablet) 25 mcg BC Q4HR [facility] Last Admin: 07/24/20 18:36 Dose: 25 mcg Documented by: Ondansetron HCl (Ondansetron 4 Mg/2 Ml Vial) 4 mg IVP Q4HR PRN PRN Reason: Nausea / Vomiting Oxytocin (Oxytocin 10 Unit/Ml Vial) 10 unit IM .ONCE PRN PRN Reason: Step one: If no IV access Stop: 07/29/20 08:40 Sodium Chloride (Sodium Chloride Flush 0.9% 10 Ml Syringe) 10 ml IVP 0100,0900,1700 RUSSELL Sodium Chloride (Sodium Chloride Flush 0.9% 10 Ml Syringe) 10 ml IVP PRN PRN PRN Reason: NEEDED PER PROVIDER ORDERS Allergies/Adverse Reactions: Allergies Allergy/AdvReac Type Severity Reaction Status Date / Time No Known Drug Allergies Allergy Verified 07/24/20 11:28 Anes History & Medical History - Anesthetic History Anesthesia Complications: reports: No previous complications Family history of Anesthesia Complications: Denies Family history of Malignant Hyperthermia: Denies - Medical History Cardiovascular: reports: Hypertension (Gestational) Pulmonary: reports: None, Other (Snores) Gastrointestinal: reports: GERD (Chronic) Urinary: reports: None Neuro: reports: None Musculoskeletal: reports: None Endocrine/Autoimmune: reports: Type 2 diabetes Blood Disorders: reports: None Smoking Status: Never smoker Psychosocial: reports: No issues indicated History of Cancer?: No - Obstetrical History Events: positive: Gestational diabetes, Labor induction, Other (Elevated BP's) Exam General: Alert, Oriented x3, Mild distress Dental: WNL, Other (Grinds teeth) Mouth Openin Fingerbreadth Neck Mobility: Reduced Mallampati classification: III (Potential difficult airway) Thyromental Distance: 4-6 cm Plan Anesthesia Type: Epidural Consent for Procedure(s) Verified and Reviewed: Yes Code Status: Attempt Resuscitation ASA classification: 3-Severe systemic disease Is this case an emergency?: No (Discussed TIRSO, Consent signed)
[2020-07-25] MEDS ORDERED: diphenhydrAMINE INJ 50 MG/ML VIAL IVP PRN (04:21)
[2020-07-25] MEDS ORDERED: NALOXONE 0.4 MG/ML VIAL IVP PRN (04:21)
[2020-07-25] MEDS ORDERED: ePHEDrine 50 MG/ML VIAL IVP PRN (04:21)
[2020-07-25] MEDS ORDERED: METOCLOPRAMIDE 10 MG/2 ML VIAL IVP PRN (04:21)
[2020-07-25] MEDS ORDERED: ONDANSETRON 4 MG/2 ML VIAL IVP PRN (04:21)
[2020-07-25] MEDS ORDERED: NALBUPHINE 10 MG/ML AMP IVP PRN (04:21)
--- NOTE | 2020-07-25 04:58 | PROVIDER PROGRESS NOTE ---
Labor Progress Note - Uterine Monitoring Contraction Intensity: positive: Strong Uterine Resting Tone: positive: Soft - Monitoring Monitor Mode: positive: Spiral electrode Heart Rate Baseline: 130 Heart Rate Variability: positive: Moderate (6-25 bmp) Accelerations: positive: Absent Decelerations: positive: Early Strip Review: positive: Category II - Vaginal Exam Dilation (in cm): 7 Effacement (%): 100 Station: 0 Cervical Position: Posterior - Labor Progress Note Labor Progress Note/Additional Text: scalp electrode palce because of loss of signal. 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
[2020-07-25 05:25] LABS: BASOPHILS % (AUTO) 0.3 %; EOSINOPHILS # (AUTO) 0.1 10^3/uL (0.0-0.7); EOSINOPHILS % (AUTO) 0.4 %; HGB - HEMOGLOBIN 11.3 g/dL (12.0-16.0); LYMPHOCYTES # (AUTO) 1.6 10^3/uL (1.5-3.5); LYMPHOCYTES % (AUTO) 12.1 %; MEAN CORPUSCULAR HEMOGLOBIN 29.3 pg (27.0-31.0); MEAN CORPUSCULAR HGB CONC 32.9 g/dL (32.0-36.0); MEAN CORPUSCULAR VOLUME 88.9 fL (81.0-99.0); MEAN PLATELET VOLUME 10.3 fL (7.9-10.8); MONOCYTES # (AUTO) 0.8 10^3/uL (0.0-1.0); MONOCYTES % (AUTO) 6.2 %; NEUTROPHILS # (AUTO) 10.9 10^3/uL (1.5-6.6); NEUTROPHILS % (AUTO) 80.4 %; PLT - PLATELET COUNT 202 10^3/uL (130-450); RED BLOOD COUNT 3.86 10^6/uL (4.20-5.40); RED CELL DISTRIBUTION WIDTH 14.2 % (12.0-15.0); WHITE BLOOD COUNT 13.5 x10^3/uL (4.8-10.8)
[2020-07-25] MEDS ORDERED: TERBUTALINE 1 MG/ML VIAL SUBQ ONE (05:31)
[2020-07-25 05:32] LABS: CREATININE,URINE 97.7 mg/dL; PROTEIN/CREATININE RATIO,URINE 0.2 (<=0.2)
[2020-07-25 05:35] LABS: ALBUMIN 3.2 g/dL (3.2-5.5); ALBUMIN/GLOBULIN RATIO 0.9 (1.0-2.2); BILIRUBIN,TOTAL 0.4 mg/dL (0.2-1.0); CALCIUM 8.8 mg/dL (8.5-10.3); CREATININE 0.7 mg/dL (0.4-1.0); TOTAL PROTEIN 6.9 g/dL (6.7-8.2); URIC ACID 5.9 mg/dL (2.6-7.2)
[2020-07-25] MEDS ORDERED: SODIUM CHLORIDE FLUSH 0.9% 10 ML SYRINGE IVP PRN (07:00)
[2020-07-25] MEDS ORDERED: LACTATED RINGERS 1,000 ML IV SCH ×2 (07:00→21:00)
[2020-07-25] MEDS ORDERED: ACETAMINOPHEN 500 MG TABLET PO SCH ×2 (07:00→23:00)
[2020-07-25] MEDS ORDERED: oxyCODONE 5 MG TABLET PO PRN (07:00)
[2020-07-25] MEDS ORDERED: LACTATED RINGERS 200 ML IV ONE (07:11)
[2020-07-25] MEDS ORDERED: LACTATED RINGERS 1,000 ML IV ONE (07:15)
--- NOTE | 2020-07-25 07:16 | OPERATIVE REPORT ---
Operative Report - General Admit Date: 07/25/20 Procedure Date: 07/25/20 Planned Procedure: EPLT/S Pre-Op Diagnosis: 38 wks, GDM,GHTN, Late decelerations, decelerations to nancy 90, Procedure Performed: Same Post Op Diagnosis: occult prolapsed cord, nucal cord - Procedure Note Primary Surgeon: Mat York MD Secondary Surgeon: yoselin Villa MD Anesthesia Provider: Gilbert Barrios CRNA Anesthesia Technique: Epidural Pathology: Placenta IV Fluids (mL): 1,000 Estimated Blood Loss (mL): 600
[2020-07-25] MEDS ORDERED: DOCUSATE SODIUM 100 MG CAPSULE PO SCH (09:00)
[2020-07-25] MEDS ORDERED: SODIUM CHLORIDE FLUSH 0.9% 10 ML SYRINGE IVP SCH (09:00)
--- NOTE | 2020-07-25 10:04 | OPERATIVE REPORT ---
DATE OF SERVICE: 07/25/2020 Physician: Mat York MD PREOPERATIVE DIAGNOSES 1. Thirty-eight weeks. 2. Gestational diabetes. 3. Gestational hypertension. 4. Repetitive late decelerations with bradycardia down to the 80s. 5. intolerance of labor. PROCEDURE PERFORMED: Emergency primary low-transverse section. SURGEON: Mat York MD SCREEN EXAMINER: Fili Bruno MD ANESTHESIA: Madeline Barrios CRNA ANESTHETIC: Epidural. FINDINGS: Upon entering the abdominal cavity, there was a live male who was noted in the right occiput posterior position. There was a cord, which was interspersed between the head and the lower uterine segment. There was also a nuchal cord noted. The amniotic fluid was clear. Tubes and ovaries appeared to be free of disease. DESCRIPTION OF PROCEDURE: Because of the urgency of the situation, verbal consent was obtained from the patient, and it was explained that there was a risk of bleeding, infection, injury to the pelvic organs. At that point, she was taken back to the operating room in an expeditious fashion. She was then placed on the table. Epidural level was raised by anesthesia. She was prepped and draped in the usual fashion. Following a cursory timeout, the procedure was commenced. A low-transverse uterine incision was accomplished using a #10 blade and bandage scissors. The incision was carried laterally using Bacon scissors. The peritoneum was entered high. Care was taken to avoid any injury to bowel or bladder. At this point, a bladder flap was developed, and then a low-transverse uterine incision was accomplished using a #10 blade and bandage scissors with a finger spread technique. At this point, the head of the infant was encountered and noted to be in the right occiput posterior position. The cord was interspersed between the head as well as the right lower portion of the uterus. There was also a nuchal cord. The amniotic fluid, however, was clear. The head of the was lifted out of the pelvis, and then the infant was delivered following fundal pressure. At this point, the baby became very vigorous. The cord was doubly clamped and divided. The was handed to the catcher plug who was in attendance. At this point, cord blood was obtained. The infant was very vigorous and was taken to the warmer. The uterus was exteriorized. The placenta was delivered manually and then wrapped in a moist lap and cleansed the internal portion with a dry lap. The uterine incision was closed using a running locking suture of #0 Vicryl with an imbricating layer of #0 Vicryl. Good hemostasis was observed. The uterus was then tipped forward, and the cul-de-sac was sucked clear of any clots. The estimated initial blood loss was noted at that time. The uterus was irrigated and then delivered back in the abdominal cavity. Gutters were likewise irrigated and no evidence of any further bleeding. The incision was inspected and noted to be dry. At this point, the peritoneum was closed utilizing 2-0 Vicryl, the rectus was reapproximated with 3 [id number] of 2-0 Vicryl, the fascia was then closed using looped PDS, and the subcutaneous tissue was then closed using #2-0 Vicryl. The incision itself was closed using 4-0 Monocryl, and then a wound VAC was applied. The patient tolerated the procedure well and was taken to recovery in stable condition. During this procedure, Dr. Kory Bruno was instrumental in his assistance with traction, suction and closure of the wound. TD: 07/25/2020 09:03 ISMAEL
[2020-07-25] MEDS: metFORMIN 500 MG TABLET PO SCH (10:12)
--- NOTE | 2020-07-25 11:23 | ANESTHESIA POST OP EVALUATION ---
Anesthesia Post Eval - Post Anesthesia Eval Vitals: Last Vital Signs Temp 36.5 C 07/25/20 11:15 Pulse 74 07/25/20 11:15 Resp 17 07/25/20 11:15 BP 124/80 07/25/20 11:15 Pulse Ox 97 07/25/20 11:15 CV Function Including HR & BP: positive: Stable Pain Control: positive: Satisfactory Nausea & Vomiting: positive: Negative Mental Status: positive: Baseline Respiratory Status: Airway Patent Hydration Status: Satisfactory Anesthesia Complications: positive: None
[2020-07-25] MEDS: KETOROLAC 30 MG/ML VIAL IVP SCH ×2 (12:20→18:16)
[2020-07-25] MEDS ORDERED: SIMETHICONE CHEW 80 MG TABLET PO SCH ×2 (14:00→22:00)
[2020-07-25] MEDS ORDERED: CARBOPROST TROMETHAMINE 250 MCG/ML AMP IM PRN (20:15)
[2020-07-25] MEDS ORDERED: metFORMIN 500 MG TABLET ONE (20:42)
[2020-07-25] MEDS ORDERED: KETOROLAC 30 MG/ML VIAL IVP SCH (21:00)
[2020-07-25] MEDS ORDERED: miSOPROStoL 100 MCG TABLET BC SCH (21:00)
[2020-07-25] MEDS: ACETAMINOPHEN 500 MG TABLET PO SCH (21:21)
[2020-07-26] MEDS: KETOROLAC 30 MG/ML VIAL IVP SCH ×2 (00:28→06:19)
[2020-07-26] MEDS: ACETAMINOPHEN 500 MG TABLET PO SCH ×3 (05:15→22:14)
[2020-07-26] MEDS ORDERED: metFORMIN 500 MG TABLET PO SCH (08:00)
--- NOTE | 2020-07-26 09:00 | PROVIDER PROGRESS NOTE ---
Subjective - General Admit Date: 07/25/20 Procedure Date: 07/25/20 Post Op Days: 1 Procedure Performed: EPLTC/S - Review of Systems Wound/Incisions: positive: Dressing dry and intact General: positive: No symptoms. negative: Fever Objective - Patient Data Reviewed Vital Signs: Yes Vital Signs: Vital Signs x48h Temp Pulse Resp BP Pulse Ox 07/26/20 04:06 36.4 C L 72 18 109/64 98 07/26/20 01:18 36.5 C 83 18 124/69 100 Weight: Weight 07/24/20 07/25/20 07/26/20 23:59 23:59 23:59 Weight (kg) 88.451 kg 88.451 kg Intake & Output: Intake and Output Totals x24h 07/24/20 07/25/20 07/26/20 23:59 23:59 23:59 Intake Total 3036 480 Output Total 940 1125 Balance 6576 -465 - Lab Results Lab Results: 07/25/20 05:14 07/25/20 05:14 Other Lab Results: Lab Results x24hrs 07/25/20 07/25/20 Range/Units 16:54 13:26 POC Whole Bld Glucose 98 123 H (70 - 100) mg/dL - Current Medications Current Medications: Current Medications Generic Name Dose Route Start Last Admin Trade Name Freq PRN Reason Stop Dose Admin Acetaminophen 1,000 mg 07/25/20 21:00 07/26/20 05:15 Acetaminophen 500 Mg Tablet PO 1,000 mg Q8H RUSSELL Administration Fentanyl 50 mcg 07/24/20 08:37 07/25/20 01:29 Fentanyl 100 Mcg/2 Ml Vial IVP 50 mcg Q1H PRN Administration PAIN Metformin HCl 500 mg 07/26/20 08:00 07/25/20 21:00 Metformin 500 Mg Tablet PO 500 mg BIDWM RUSSELL Administration Sodium Chloride 10 ml 07/24/20 08:37 07/26/20 06:20 Sodium Chloride Flush 0.9% 10 Ml Syringe IVP 10 ml PRN PRN Administration NEEDED PER PROVIDER ORDERS Sodium Chloride 10 ml 07/25/20 09:00 07/25/20 18:16 Sodium Chloride Flush 0.9% 10 Ml Syringe IVP 10 ml 0100,0900,1700 RUSSELL Administration - Physical Exam Wound/Incisions: positive: Dressing dry and intact, No drainage General Appearance: positive: No acute distress (Pain 6/10. notes good pain control) Respiratory: positive: Chest non-tender, No respiratory distress, Breath sounds nml Cardiovascular: positive: Regular rate & rhythm, No murmur, No gallop Abdomen: positive: No distention Back: negative: CVA tenderness (R), CVA tenderness (L) Skin: positive: Color nml, No rash Extremities: negative: Calf tenderness, Julio C's sign/cords Neurologic/Psychiatric: positive: Oriented x3 Impression/Plan - Problem List Problem List: POD# 1 progressing well. Continue care
[2020-07-26] MEDS: IBUPROFEN 800 MG TABLET PO PRN (13:59)
[2020-07-26] MEDS ORDERED: BISACODYL 10 MG SUPP PR PRN (14:38)
[2020-07-26] MEDS: DOCUSATE SODIUM 100 MG CAPSULE PO SCH (21:12)
[2020-07-27] MEDS: IBUPROFEN 800 MG TABLET PO PRN (01:59)
[2020-07-27 08:12] VITALS: BP 131/82
[2020-07-27] MEDS: ACETAMINOPHEN 500 MG TABLET PO SCH (08:13)
[2020-07-27] MEDS: DOCUSATE SODIUM 100 MG CAPSULE PO SCH (08:14)
--- NOTE | 2020-07-27 11:37 | Labor Flowsheet ---
Labor Flowsheet Datetime Report Generated by CPN: 07/27/2020 11:37 Datetime: 07/25/2020 05:25 Comments: To OR Datetime: 07/25/2020 05:24 Pulse: 99 SpO2 (%): 100 LaborFlag: Labor Datetime: 07/25/2020 05:15 VITAL SIGNS NBP Sys/Radha/Mean (mmHg): 109 : 67 : 77 Datetime: 07/25/2020 05:10 Communication Comments: Stat called by Dr Giem Datetime: 07/25/2020 05:09 Monitor Interventions for UA: [place] Adjusted ASSESSMENT A Monitor Mode: Telemetry Datetime: 07/25/2020 05:06 Patient Position/Activity: Left Lateral Datetime: 07/25/2020 05:04 Actions for Decelerations: Oxygen Applied; IV Bolus; Other Datetime: 07/25/2020 05:00 Stage of : Labor FHR Baseline Rate : 120 Variability: Moderate 6-25 bpm Accelerations: 15X15 Decelerations: Late PAIN Pain Scale: 0 PATIENT CARE Oxygen Amount (LPM): 10 Oxygen Method: Non-Rebreather Anesthesia Level Check: T10- Umbilicus Datetime: 07/25/2020 04:45 Monitor Interventions for FHR: FSE Applied Datetime: 07/25/2020 04:39 VAGINAL EXAM Dilatation (cm): 7.0 Effacement (%): 100 Station: 0 Exam by: Dr giem Datetime: 07/25/2020 04:30 UTERINE ACTIVITY Monitor Mode: External Frequency (min): 1-4 Quality: Moderate Duration (sec): 50-80 Pattern: Normal: <= 5 Contractions in 10 Minutes Resting Tone (Palpate): Relaxed Datetime: 07/25/2020 04:05 COMMUNICATION Communication: Call/Page Placed to Provider Notification Reason: Status Update Datetime: 07/25/2020 04:00 Respirations: 18 Temperature (C): 37.0 Temperature Route: Oral Datetime: 07/25/2020 03:51 Cervix, Consistency: Soft Cervix, Position: Posterior Anesthesia Comments: BOLUS GIVEN Datetime: 07/25/2020 03:45 Pain Presence: Intermittent Pain Type: Cramping Pain Relief Measures: Epidural Given Datetime: 07/25/2020 03:44 Epidural Procedure: Test Dose Datetime: 07/25/2020 03:32 PROCEDURE TIME OUT Procedure Type: 0334 Procedure Verify: Correct Patient Identity; Correct Side and Site are Marked; Accurate Procedure Co nsent Form; Agreement on Procedure to be Done; Correct Patient Position Epidural Positioning: Sitting Datetime: 07/25/2020 03:00 Provider Notified (Name): Abrrios Datetime: 07/25/2020 02:50 ANESTHESIA Anesthesia Plans: Epidural Datetime: 07/25/2020 02:37 I/O Interventions: Up to BR Patient Care Comments: jacuzzi Datetime: 07/25/2020 02:00 Category: Category II Datetime: 07/25/2020 01:29 Pain Location: Abdomen; Back Datetime: 07/25/2020 01:21 Vaginal Bleeding: None MATERNAL ASSESSMENT Level of Consciousness: Alert Headache: Denies Nausea/Vomiting: Denies Datetime: 07/24/2020 23:20 Membrane Status: Ruptured Membranes Ruptured Date/Time: 07/24/2020 23:20 Membranes Rupture Method: Spontaneous Amniotic Fluid Color: Clear Amniotic Fluid Amount: Copious Amniotic Fluid Odor: Normal Datetime: 07/24/2020 21:00 FHR Baseline Changes: No Baseline Change Datetime: 07/24/2020 18:40 MEDICATIONS Cervical Ripening Agents: Cytotec @ Datetime: 07/24/2020 17:30 Pain Coping: Talking Through Contractions Datetime: 07/24/2020 14:24 Cervical Ripening Agents Other: 25mcg
--- NOTE | 2020-07-27 15:21 | DISCHARGE SUMMARY ---
Physician: Mat York MD DATE OF ADMISSION: 07/24/2020 DATE OF DISCHARGE: 07/27/2020 ADMITTING DIAGNOSES 1. A 33-year-old G2, P0, female at 38-and-2 weeks. 2. Gestational diabetes. 3. Gestational hypertension. DISCHARGE DIAGNOSES 1. A 33-year-old G2, P0, female at 38-and-2 weeks. 2. Gestational diabetes. 3. Gestational hypertension. 4. Occult prolapsed cord, distress, nuchal cord x 1. PROCEDURES 1. A misoprostol. 2. Epidural. 3. Emergency primary low transverse section. PRESENTING HISTORY: The patient is a 34-year-old G2, P0 female who is 38.2 weeks. She had early OB care here. She presented for induction of labor. Her was complicated, in that she had polycystic ovary disease, and thus was on metformin prior to conception. She received that through her pregnancies with good control of her diabetes. She, toward the end of her , was noted to have increasing blood pressures and for this reason, she presented for induction on the . PAST MEDICAL HISTORY: Significant for polycystic ovaries as well as gestational diabetes. She had previously had an ovarian cystectomy. CURRENT MEDICATIONS 1. Metformin 500 mg p.o. b.i.d. 2. vitamins. On admission, her cervix was felt to be closed, 40% effaced, and the was floating high. LABORATORIES CBC on admission showed a white count of 10.8, hemoglobin 11.9, hematocrit was 34. Platelets were 228. Post delivery, her white count increased to 15.5, hemoglobin fell to 11.3, platelets remained steady at 2.0. Chemistries: Her creatinine was 0.7. Her glucose was 111. AST, ALT were both normal. Her urine protein-creatinine ratio on admission was 0.2 and on the it was also 0.2. The patient's blood sugars throughout labor remained in the 100s and teens. Her chemistries likewise remain essentially normal with the exception of a low potassium. HOSPITAL COURSE: The patient was admitted, had cervical ripening performed. There was some difficulty picking up the heart tone, so a scalp electrode was placed. Following this, she developed difficulties with flat [id number] variability with decelerations, which were late, and then had deceleration down into the 80s. For this reason, it was decided to proceed on with a stat emergency section. This was performed without incident, at which time a live was encountered. There was an occult prolapsed cord, with the cord being between the head and the uterus on the patient's right-hand side. The amniotic fluid was clear. The was handed to the licensed embalmer supervisor that was in attendance. Her course had been unremarkable. Her diet was advanced. Her blood sugars have been normalizing. She is currently not taking metformin at this time. She is being discharged to home on medications of oxycodone and Motrin. She is instructed to follow up in the clinic in one week for wound VAC removal. She is also instructed to continue doing her blood sugar monitoring to check for evidence of diabetes. Her vital signs post-op have been all within normal limits. TD: 07/27/2020 13:58 j ISMAEL
== END 2020-07-27 11:30 | disposition home or self-care (01) | DRG 788 ==
LOC: WFO 08:02 → FBP 08:06 → WFO 08:36 → FBP 08:37 → OBSVTOIN 07-25 04:18 → FBP 07-25 07:08
PROVIDERS: ADMIT Obstetrics & Gynecology; ATTEND Obstetrics & Gynecology
PROC: 10D00Z1 Extraction of Products of Conception, Low, Open Approach (ICD-10-PCS; principal; 2020-07-25 05:30)
DX: O13.4 Gestational [pregnancy-induced] hypertension without significant proteinuria, complicating childbirth (principal); O99.284 Endocrine, nutritional and metabolic diseases complicating childbirth; E28.2 Polycystic ovarian syndrome; O24.420 Gestational diabetes mellitus in childbirth, diet controlled; O76 Abnormality in fetal heart rate and rhythm complicating labor and delivery; O69.0XX0 Labor and delivery complicated by prolapse of cord, not applicable or unspecified; O69.81X0 Labor and delivery complicated by cord around neck, without compression, not applicable or unspecified; Z3A.38 38 weeks gestation of pregnancy; Z37.0 Single live birth; Z83.3 Family history of diabetes mellitus; Z82.49 Family history of ischemic heart disease and other diseases of the circulatory system
CPT/HCPCS: 36415; 80053; 82570; 83036; 84156; 84550; 85025; 86850; 86900; 86901; 96374; A9270; G0378; J2795; J7120; 88307

== ENCOUNTER → 2020-09-09 | Outpatient (CLI) | payer OTHER | LOC: LAB 08:00 | PROVIDERS: ATTEND Obstetrics & Gynecology | DX: Z39.2 Encounter for routine postpartum follow-up (principal) | CPT/HCPCS: 82951 ==

== ENCOUNTER 2022-01-02 15:12 | Outpatient (CLI) | payer OTHER ==
--- NOTE | 2022-01-03 17:16 | Ultrasound Report ---
PROCEDURE: OB Detailed Eval INDICATIONS: SUPERVISION OF OUTSIDE/PRIOR DATING DATA: Last menstrual period (LMP): 04/30/2022. LMP-based estimated date of delivery (MATEO): 07/24/2021. First dating scan (date and location): 10/27/2021. Estimated date of delivery (MATEO) from first dating scan: 05/15/2022. The below data below was generated using the ultrasound MATEO of 05/15/2022 TECHNIQUE: Real-time scanning was performed of the fetus, with image documentation and biometric measurements. COMPARISON: None FINDINGS: General: A single living intrauterine gestation is present. Presentation: Transverse Placenta: Placental position is anterior lateral, without previa. Amniotic fluid index: 14 point cm, within normal limits for gestational age. Largest pocket 5.3 cm heart rate: 160 beats per minute. Maternal cervical canal: 5.2 cm long; normal length is 2.5 cm or more. biometrics: Biparietal diameter: 4.9 cm 20 weeks 6 days Head circumference: 18.3 cm 20 weeks 5 days Abdominal circumference: 16.7 cm 21 weeks 4 days Femur length: 3.4 cm 20 weeks 4 days Estimated gestational age from initial scan: 21 weeks 0 days Composite gestational age from present scan: 20 weeks 5 days Estimated weight and percentile: 390 g, 49th percentile Measurement variability in biometric dating: +/- 10 days from 12-20 weeks gestation, +/- 2 weeks from 20-30 weeks gestation, +/- 3 weeks at 30 weeks gestation or later. Anatomic survey: Neuro: Ventricles are normal at less than 10 mm. Cisterna magna is normal at 3-11 mm. Cerebellum i s normal in size and morphology. Nuchal skin fold: Normal at less than 6 mm between 14 and 20 weeks gestational age. Face: Nose and lips, facial profile are normal. Spine: Not well seen. Heart: 4-chambered heart is present, with normal ventricular outflow tracts. Diaphragm: Diaphragm is intact. Stomach: Left-sided stomach is present. Kidneys: No hydronephrosis. Normal is less than 5 mm in 2nd trimester, less than 7 mm in 3rd trimester. Cord: 3 vessel cord has orthotopic insertion. Bladder: Normal in size. Extremities: All 4 extremities are visualized. Miscellaneous: Focus of mixed echogenicity is present within the right ovary. IMPRESSION: Single live intrauterine with ultrasound gestational age today of 20 weeks 5 days. Anatomy is within normal limits with the exception of poor evaluation of the spine. Recommend follow- up imaging. Focus of mixed echogenicity within the right ovary suspicious for dermoid. Reviewed by: Nelsy Evans MD on 01/03/2022 5:14 PM PDT Approved by: Nelsy Evans MD on 01/03/2022 5:14 PM PDT Station ID: [id number]
== END 2022-01-02 15:13 | disposition home or self-care (01) ==
LOC: DI 15:12
PROVIDERS: ATTEND Obstetrics & Gynecology
DX: O09.92 Supervision of high risk pregnancy, unspecified, second trimester (principal); Z36.89 Encounter for other specified antenatal screening; Z86.32 Personal history of gestational diabetes; Z3A.20 20 weeks gestation of pregnancy
CPT/HCPCS: 36415; 82950

== ENCOUNTER 2022-01-13 07:58 | Observation (INO) | payer OTHER ==
[2022-01-13 08:50] LABS: BASOPHILS # (AUTO) 0.1 10^3/uL (0.0-0.1); BASOPHILS % (AUTO) 0.3 %; EOSINOPHILS # (AUTO) 0.1 10^3/uL (0.0-0.7); EOSINOPHILS % (AUTO) 0.7 %; HCT - HEMATOCRIT 36.4 % (37.0-47.0); LYMPHOCYTES # (AUTO) 2.1 10^3/uL (1.5-3.5); LYMPHOCYTES % (AUTO) 13.9 %; MEAN CORPUSCULAR HEMOGLOBIN 28.8 pg (27.0-31.0); MEAN CORPUSCULAR VOLUME 87.5 fL (81.0-99.0); MEAN PLATELET VOLUME 9.6 fL (7.9-10.8); NEUTROPHILS # (AUTO) 11.5 10^3/uL (1.5-6.6); NEUTROPHILS % (AUTO) 77.6 %; PLT - PLATELET COUNT 231 10^3/uL (130-450); RED BLOOD COUNT 4.16 10^6/uL (4.20-5.40); RED CELL DISTRIBUTION WIDTH 13.2 % (12.0-15.0); WHITE BLOOD COUNT 14.8 x10^3/uL (4.8-10.8)
[2022-01-13 08:55] LABS: ALBUMIN 3.9 g/dL (3.2-5.5); ALBUMIN/GLOBULIN RATIO 1.1 (1.0-2.2); BILIRUBIN,TOTAL 0.4 mg/dL (0.2-1.0); CALCIUM 10.2 mg/dL (8.5-10.3); CREATININE 0.9 mg/dL (0.4-1.0); POTASSIUM 3.5 mmol/L (3.5-5.0); TOTAL PROTEIN 7.6 g/dL (6.7-8.2)
[2022-01-13 09:31] LABS: BILIRUBIN,URINE NEGATIVE (NEGATIVE); GLUCOSE, URINE (UA) NEGATIVE (NEGATIVE); KETONES,URINE (UA) NEGATIVE (NEGATIVE); LEUKOCYTE ESTERASE, URINE SMALL (NEGATIVE); NITRITE,URINE NEGATIVE (NEGATIVE); OCCULT BLOOD,URINE MODERATE (NEGATIVE); PROTEIN,URINE NEGATIVE (NEGATIVE); UROBILINOGEN,URINE 0.2 (NORMAL) E.U./dL (NORMAL)
[2022-01-13 09:34] LABS: CLARITY,URINE CLEAR (CLEAR)
[2022-01-13 10:00] LABS: BACTERIA,URINE Few /HPF (None Seen); RBC,URINE 0-5 /HPF (0-5); SQUAMOUS EPITHELIAL CELL,UR FEW Squamous (<= Few)
[2022-01-13] MEDS ORDERED: HYDROmorphone 1 MG/ML CARPUJECT IVP PRN (10:17)
[2022-01-13] MEDS ORDERED: ACETAMINOPHEN 1,000 MG/100 ML 100 ML IV ONE (10:17)
[2022-01-13 10:22] LABS: BACTERIAL VAGINOSIS DNA NEGATIVE (NEGATIVE); CANDIDA GLABRATA DNA NEGATIVE (NEGATIVE); CANDIDA GROUP DNA NEGATIVE (NEGATIVE); CANDIDA KRUSEI DNA NEGATIVE (NEGATIVE); TRICHOMONAS VAGINALIS DNA NEGATIVE (NEGATIVE)
[2022-01-13] MEDS ORDERED: ONDANSETRON 4 MG/2 ML VIAL IVP PRN (10:35)
[2022-01-13] MEDS ORDERED: ONDANSETRON ODT 4 MG TABLET TL PRN (10:35)
--- NOTE | 2022-01-13 10:58 | HISTORY & PHYSICAL EXAMINATION ---
History of Present Illness - History of Present Illness HPI Comment/Other: CC: abdominal pain HPI: Patient had slow onset of right lower quadrant pain yesterday, became severe last night, became concerned because it remained persistent, called MD in the morning and asked to come in. Pain is mostly in the RLQ/groin fold area. No radiation. Quality is sore. Vomited once last night but no other associated symptoms. Hasn't ever had pain like this before and not sure what it is. No vaginal bleeding, leaking of fluid, diarrhea, constipation, dysuria, hematuria, fevers, or other sites of pain. Feeling consistent movement. PMH: PCOS PSH: eye correction, wrist fixation, bilateral ovarian cystectomies LSC for "twisted ovary" Allergies: NKDA Meds: ASA, PNV, and fish oil daily FH: no anesthesia reactions SH: no t/e/d. 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 Is WISAM and is on aspirin. Hx of GDM and normal early 1h this . MATEO 05/15/22. Normal labs and anatomy scan. History - Past Medical History Cardiovascular: reports: Hypertension (Gestational) Respiratory: reports: None, Other (Snores) Neuro: reports: None Endocrine/Autoimmune: reports: Type 2 diabetes GI: reports: GERD (Chronic) : reports: None Musculoskeletal: reports: None Meds/Allgy - Allergies Allergies/Adverse Reactions: Allergies Allergy/AdvReac Type Severity Reaction Status Date / Time No Known Drug Allergies Allergy Verified 07/24/20 11:28 Exam - Vital Signs Reviewed Vital Signs: Yes Vital Signs: Vital Signs x48h Temp Pulse Resp BP 01/13/22 08:06 98.6 F 86 16 130/89 H - Physical Exam General Appearance: positive: Alert, Mild distress (rocking while sitting) Eyes Bilateral: positive: Normal inspection Neck: positive: Trachea midline Respiratory: positive: No respiratory distress Abdomen: positive: No distention, Tenderness. negative: Guarding, Rebound, Mass (Mild in RLQ. No fundal tenderness. No left sided tenderness.) Back: positive: CVA tenderness (R) Skin: positive: Color nml Neurologic/Psychiatric: positive: Oriented x3, Mood/affect nml Conclusion/Plan - Lab Results Fish Bones: 01/13/22 08:35 01/13/22 08:35 - Other Other Results/Comments: 36yo at 22w with acute pyelonephritis--CVA tenderness, +UA, elevated WBC. No signs of sepsis. Will treat with rocephin, admit because she is , IVF bolus to flush bacteria, pain control. Not currently febrile--will use pain to determine improvement/not. Ddx includes appendicitis but she doesn't have significant GI symptoms and her exam is without guarding or rebound. Ddx also includes ovarian torsion and chorioamnionitis but with the +UA and nontender fundus those aren't current concerns. Advanced reproductive age: continue aspirin.
[2022-01-13] MEDS: SODIUM CHLORIDE 0.9% 1,000 ML IV SCH ×2 (10:59→16:16)
[2022-01-13] MEDS ORDERED: cefTRIAXone 1 GM in SODIUM CHLORIDE 0.9% MINIBAG 100 ML IV SCH (11:00)
[2022-01-13] MEDS ORDERED: CEFAZOLIN SODIUM IN 0.9 % NACL 2 GM/50 ML BAG IV SCH (11:00)
[2022-01-13] MEDS ORDERED: DOXYLAMINE 25 MG TABLET PO PRN (11:08)
[2022-01-13] MEDS ORDERED: ASPIRIN EC 81 MG TABLET PO SCH (18:00)
[2022-01-13] MEDS ORDERED: ACETAMINOPHEN 500 MG TABLET PO PRN (18:00)
[2022-01-13] MEDS ORDERED: DOCUSATE SODIUM 100 MG CAPSULE PO SCH (21:00)
[2022-01-14 08:10] VITALS: BP 115/64
[2022-01-14] MEDS ORDERED: cefTRIAXone 1 GM in SODIUM CHLORIDE 0.9% MINIBAG 100 ML IV SCH (09:10)
[2022-01-14 09:35] LABS: BASOPHILS % (AUTO) 0.3 %; EOSINOPHILS # (AUTO) 0.2 10^3/uL (0.0-0.7); EOSINOPHILS % (AUTO) 1.5 %; HCT - HEMATOCRIT 36.4 % (37.0-47.0); LYMPHOCYTES # (AUTO) 2.4 10^3/uL (1.5-3.5); LYMPHOCYTES % (AUTO) 20.8 %; MEAN CORPUSCULAR HEMOGLOBIN 29.7 pg (27.0-31.0); MEAN CORPUSCULAR VOLUME 90.1 fL (81.0-99.0); MEAN PLATELET VOLUME 9.5 fL (7.9-10.8); MONOCYTES # (AUTO) 0.9 10^3/uL (0.0-1.0); MONOCYTES % (AUTO) 7.4 %; NEUTROPHILS % (AUTO) 69.3 %; PLT - PLATELET COUNT 237 10^3/uL (130-450); RED BLOOD COUNT 4.04 10^6/uL (4.20-5.40); RED CELL DISTRIBUTION WIDTH 13.2 % (12.0-15.0); WHITE BLOOD COUNT 11.6 x10^3/uL (4.8-10.8)
--- NOTE | 2022-01-14 09:43 | DISCHARGE SUMMARY ---
Discharge Summary Admit Date: 01/13/22 Discharge Date: 01/14/22 - DIAGNOSES Admission Diagnoses: Right pyelonephritis, incidental - HOSPITAL COURSE Hospital Course: Her pain resolved with 1 dose of ceftriaxon, she remained AVSS, a repeat WBC was stable. As she is so reliable, will discharge home with strict precautions for return for even slight worsening--can lead to sepsis which can have serious outcomes. - ALLERGIES Allergies/Adverse Reactions: Allergies Allergy/AdvReac Type Severity Reaction Status Date / Time No Known Drug Allergies Allergy Verified 07/24/20 11:28 - PHYSICAL EXAM AT DISCHARGE General Appearance: positive: No acute distress Abdomen: positive: Non-tender, Other (slight right CVAT) - LABS Result Diagrams: 01/13/22 08:35 01/13/22 08:35 - FOLLOW UP Follow Up: At next regularly-scheduled OB visit, sooner if needed.
--- NOTE | 2022-01-14 09:47 | Discharge Plan ---
Discharge Plan Problem Reviewed?: Yes Disposition: Home, Self Care Condition: Good Diet: Regular Activity Restrictions: No Restrictions Shower Restrictions: No No Smoking: If you smoke, Please STOP! Call for help. Follow-up with: Olvin Richardson MD [Primary Care Provider] - (for your routine appointment. Go to OB triage sooner if you have any increasing pain or fevers. )
== END 2022-01-14 10:45 | disposition home or self-care (01) ==
LOC: WFO 07:58 → FBP 08:01 → UNDOADMOB 10:53 → WFO 11:25 → FBP 11:30
PROVIDERS: ADMIT Obstetrics & Gynecology; ATTEND Obstetrics & Gynecology
DX: O23.02 Infections of kidney in pregnancy, second trimester (principal); O24.912 Unspecified diabetes mellitus in pregnancy, second trimester; O99.612 Diseases of the digestive system complicating pregnancy, second trimester; K21.9 Gastro-esophageal reflux disease without esophagitis; Z3A.22 22 weeks gestation of pregnancy; Z20.822 Contact with and (suspected) exposure to COVID-19; O13.2 Gestational [pregnancy-induced] hypertension without significant proteinuria, second trimester; O99.891 Other specified diseases and conditions complicating pregnancy; N13.30 Unspecified hydronephrosis; N20.0 Calculus of kidney; R10.31 Right lower quadrant pain
CPT/HCPCS: 36415; 76770; 80053; 81001; 81514; 82570; 83605; 84156; 85025; 87210; 96365; 96366; 96367; 99215; A9270; G0378; J0131; J7120; 81003; 87086

== ENCOUNTER 2022-01-14 21:05 | Outpatient (CLI) | payer OTHER ==
[2022-01-14] MEDS ORDERED: oxyCODONE 5 MG TABLET PO PRN ×3 (21:17→21:28)
[2022-01-14 22:00] LABS: BILIRUBIN,URINE NEGATIVE (NEGATIVE); GLUCOSE, URINE (UA) NEGATIVE (NEGATIVE); KETONES,URINE (UA) NEGATIVE (NEGATIVE); LEUKOCYTE ESTERASE, URINE NEGATIVE (NEGATIVE); NITRITE,URINE NEGATIVE (NEGATIVE); OCCULT BLOOD,URINE MODERATE (NEGATIVE); PROTEIN,URINE NEGATIVE (NEGATIVE); UROBILINOGEN,URINE 0.2 (NORMAL) E.U./dL (NORMAL)
[2022-01-14 22:03] LABS: CLARITY,URINE CLEAR (CLEAR)
[2022-01-14 22:10] LABS: BACTERIA,URINE Rare /HPF (None Seen); SQUAMOUS EPITHELIAL CELL,UR RARE Squamous (<= Few); WBC,URINE 0-3 /HPF (0-5)
[2022-01-14 22:37] LABS: BASOPHILS % (AUTO) 0.3 %; EOSINOPHILS # (AUTO) 0.2 10^3/uL (0.0-0.7); EOSINOPHILS % (AUTO) 1.1 %; HCT - HEMATOCRIT 34.9 % (37.0-47.0); HGB - HEMOGLOBIN 11.7 g/dL (12.0-16.0); LYMPHOCYTES # (AUTO) 2.7 10^3/uL (1.5-3.5); MEAN CORPUSCULAR HEMOGLOBIN 29.4 pg (27.0-31.0); MEAN CORPUSCULAR HGB CONC 33.5 g/dL (32.0-36.0); MEAN CORPUSCULAR VOLUME 87.7 fL (81.0-99.0); MEAN PLATELET VOLUME 9.4 fL (7.9-10.8); MONOCYTES % (AUTO) 7.2 %; NEUTROPHILS # (AUTO) 9.6 10^3/uL (1.5-6.6); NEUTROPHILS % (AUTO) 70.9 %; PLT - PLATELET COUNT 225 10^3/uL (130-450); RED BLOOD COUNT 3.98 10^6/uL (4.20-5.40); RED CELL DISTRIBUTION WIDTH 12.9 % (12.0-15.0); WHITE BLOOD COUNT 13.6 x10^3/uL (4.8-10.8)
[2022-01-14] MEDS ORDERED: LACTATED RINGERS 1,000 ML IV ONE (22:39)
[2022-01-14] MEDS ORDERED: MORPHINE 10 MG/ML VIAL IVP PRN (22:40)
[2022-01-14 22:51] LABS: ALBUMIN 3.5 g/dL (3.2-5.5); ALBUMIN/GLOBULIN RATIO 0.9 (1.0-2.2); BILIRUBIN,TOTAL 0.4 mg/dL (0.2-1.0); CALCIUM 9.1 mg/dL (8.5-10.3); CREATININE 0.8 mg/dL (0.4-1.0); POTASSIUM 3.6 mmol/L (3.5-5.0); TOTAL PROTEIN 7.4 g/dL (6.7-8.2)
[2022-01-14] MEDS ORDERED: KETOROLAC 30 MG/ML VIAL IVP PRN (23:21)
[2022-01-14] MEDS ORDERED: oxyCODONE/ACET 5/325 Prepack 4 PO STA (23:22)
[2022-01-14 23:30] LABS: CREATININE,URINE 68.2 mg/dL; PROTEIN/CREATININE RATIO,URINE 0.1 (<=0.2)
--- NOTE | 2022-01-14 23:40 | Ultrasound Report ---
PROCEDURE: Retroperitoneal INDICATIONS: R Flank pain at 22 weeks gestation TECHNIQUE: Real-time scanning was performed of the kidneys and bladder, with image documentation. COMPARISON: Abdominal ultrasound 01/02/2022 FINDINGS: Kidneys: Right kidney measures 14.1 cm long; left kidney measures 13.9 cm long. Right renal cortica l thickness is 2.3 cm; left renal cortical thickness is 2.2 cm. Renal cortical echotexture is normal . There is mild hydronephrosis bilaterally. Bilateral echogenic nonshadowing foci are demonstrated in the perihilar regions measuring up to 0.8 cm on the right and 1.4 cm and 0.7 cm on the left. There i s a small left renal cyst measuring up to 0.9 cm. Bladder: Pre-void bladder volume is 137 mL. No postvoid residual volume. Pre-void images demonstrate no intraluminal masses or stones. On pre-void images, the left ureteral jet is noted with color Dop pler interrogation. (Of note, ureteral jets may not be detectable in up to 25% of cases due to insuf ficient differences in specific gravity between ureteral and bladder urine). Miscellaneous: No free pelvic fluid. IMPRESSION: 1. Mild bilateral hydronephrosis is nonspecific and may reflect sequelae of mass effect on the ureter s by gravid uterus. 2. Bilateral echogenic nonshadowing foci in the kidneys are nonspecific and may represent nonobstruct ing renal stones or artifact. Reviewed by: Amauri Alfaro MD on 01/14/2022 11:39 PM PDT Approved by: Amauri Alfaro MD on 01/14/2022 11:39 PM PDT Station ID: [id number]
--- NOTE | 2022-01-14 23:44 | Discharge Plan ---
Discharge Plan Problem Reviewed?: Yes Disposition: 01 Home, Self Care Condition: Good Diet: Regular Activity Restrictions: No Restrictions Shower Restrictions: No Driving Restrictions: Yes (No driving on oxycodone or percocet) Additional Instructions or Follow Up instructions: For kidney stone pain: --first try tylenol 500-1,000mg every 6 hours as needed. --Then try ibuprofen 600mg every 6 hours as needed You need to STOP taking ibuprofen by 01/22/22 It is OK during this phase of but not for long-term use. --If pain is still severe then you may take oxycodone 1/2 to 2 tablets every 4h as needed. Kidney stone management: --Strain your urine and call the clinic if you find a stone. Put it in the sterile cup and save it. --Drink a lot of fluid with a minimum of 3 liters or 100oz of fluids per day Blood pressure issue: --Your blood pressure was likely elevated due to pain but this degree does reflect an abnormal response of your body's BP regulation. This puts you at increased risk for getting blood pressure problems again this . --Continue your aspirin to reduce the risk of BP problems --Take your BP daily for 3d and then a few times per week after that. Through the rest of your . Keep a log and bring it to clinic to show your OB doc. Check your BP if you feel "weird". -If your BPs are 140/90s or higher (EITHER number, it doesn't have to be both), then notify the clinic -If your BPs are 160/100 or higher then come straight to the hospital's triage. --Other signs of severe BP issues are a moderate to severe headache, visual changes especially flashing lights or black spots, or moderate to severe upper abdominal pain. Come straight to triage for any of those symptoms even if your BP is normal. Possible urinary infection: --Finish your antibiotics No Smoking: If you smoke, Please STOP! Call for help. Follow-up with: Olvin Richardson MD [Provider Admit Priv/Credential] - 1 Week
--- NOTE | 2022-01-14 23:57 | PROVIDER PROGRESS NOTE ---
Subjective - Subjective Subjective: Patient was discharged without pain this morning and then she had a gradual onset of pain that became severe--in the right mid to low back as well as the RLQ. No bleeding or leaking. Feeling movement. No [place], visual changes, or upper abdominal pain. PIH labs normal. P:C normal. BP 160/90s returned to normal with pain control. US revealed bilateral kidney stones without obstruction and she was given toradol and oxycodone for pain control. Continue antibiotics for possible infection and as WBC has increased again. This could be a pain response however. Objective - Vital Signs/Intake & Output Vital Signs: Vital Signs x48h Temp Pulse Resp BP BP Pulse Ox 01/14/22 23:42 18 121/75 98 01/14/22 22:51 126/91 H 01/14/22 21:30 145/79 H 01/14/22 21:20 98.2 F 83 24 161/91 H Intake & Output: Intake & Output 01/11/22 01/12/22 01/13/22 01/14/22 23:59 23:59 23:59 23:59 Intake Total 1300 Output Total 500 Balance 800 - Lab Results Fish Bones: 01/14/22 22:20 01/14/22 22:20 Other Labs: Lab Results x24hrs 01/14/22 01/14/22 01/14/22 Range/Units 22:20 22:20 22:20 WBC 13.6 H (4.8-10.8) x10^3/uL RBC 3.98 L (4.20-5.40) 10^6/uL Hgb 11.7 L (12.0-16.0) g/dL Hct 34.9 L (37.0-47.0) % MCV 87.7 (81.0-99.0) fL MCH 29.4 (27.0-31.0) pg MCHC 33.5 (32.0-36.0) g/dL RDW 12.9 (12.0-15.0) % Plt Count 225 (130-450) 10^3/uL MPV 9.4 (7.9-10.8) fL Neut # (Auto) 9.6 H (1.5-6.6) 10^3/uL Lymph # (Auto) 2.7 (1.5-3.5) 10^3/uL Bradley # (Auto) 1.0 (0.0-1.0) 10^3/uL Eos # (Auto) 0.2 (0.0-0.7) 10^3/uL Baso # (Auto) 0.0 (0.0-0.1) 10^3/uL Absolute Nucleated RBC 0.00 x10^3/uL Nucleated RBC % 0.0 /100WBC Sodium 137 (135-145) mmol/L Potassium 3.6 (3.5-5.0) mmol/L Chloride 104 (101-111) mmol/L Carbon Dioxide 23 (21-32) mmol/L Anion Gap 10.0 (6-13) BUN 15 (6-20) mg/dL Creatinine 0.8 (0.4-1.0) mg/dL Estimated GFR (MDRD) 82 L (>89) Glucose 77 (70-100) mg/dL Lactic Acid 0.6 (0.5-2.2) mmol/L Calcium 9.1 (8.5-10.3) mg/dL Total Bilirubin 0.4 (0.2-1.0) mg/dL AST 16 (10-42) IU/L ALT 16 (10-60) IU/L Alkaline Phosphatase 44 (42-121) IU/L Total Protein 7.4 (6.7-8.2) g/dL Albumin 3.5 (3.2-5.5) g/dL Globulin 3.9 (2.1-4.2) g/dL Albumin/Globulin Ratio 0.9 L (1.0-2.2) Urine Color Urine Clarity (CLEAR) Urine pH (5.0-7.5) PH Ur Specific [place] (1.002-1.030) Urine Protein (NEGATIVE) mg/dL Urine Glucose (UA) (NEGATIVE) mg/dL Urine Ketones (NEGATIVE) mg/dL Urine Occult Blood (NEGATIVE) Urine Nitrite (NEGATIVE) Urine Bilirubin (NEGATIVE) Urine Urobilinogen (NORMAL) E.U./dL Ur Leukocyte Esterase (NEGATIVE) Urine RBC (0-5) /HPF Urine WBC (0-5) /HPF Ur Squamous Epith Cells (<= Few) Urine Bacteria (None Seen) /HPF Ur Microscopic Review Urine Culture Comments Urine Creatinine mg/dL Ur Total Protein Timed mg/dL Protein/Creatinin Ratio (<=0.2) 01/14/22 01/14/22 Range/Units 21:53 21:53 WBC (4.8-10.8) x10^3/uL RBC (4.20-5.40) 10^6/uL Hgb (12.0-16.0) g/dL Hct (37.0-47.0) % MCV (81.0-99.0) fL MCH (27.0-31.0) pg MCHC (32.0-36.0) g/dL RDW (12.0-15.0) % Plt Count (130-450) 10^3/uL MPV (7.9-10.8) fL Neut # (Auto) (1.5-6.6) 10^3/uL Lymph # (Auto) (1.5-3.5) 10^3/uL Bradley # (Auto) (0.0-1.0) 10^3/uL Eos # (Auto) (0.0-0.7) 10^3/uL Baso # (Auto) (0.0-0.1) 10^3/uL Absolute Nucleated RBC x10^3/uL Nucleated RBC % /100WBC Sodium (135-145) mmol/L Potassium (3.5-5.0) mmol/L Chloride (101-111) mmol/L Carbon Dioxide (21-32) mmol/L Anion Gap (6-13) BUN (6-20) mg/dL Creatinine (0.4-1.0) mg/dL Estimated GFR (MDRD) (>89) Glucose (70-100) mg/dL Lactic Acid (0.5-2.2) mmol/L Calcium (8.5-10.3) mg/dL Total Bilirubin (0.2-1.0) mg/dL AST (10-42) IU/L ALT (10-60) IU/L Alkaline Phosphatase (42-121) IU/L Total Protein (6.7-8.2) g/dL Albumin (3.2-5.5) g/dL Globulin (2.1-4.2) g/dL Albumin/Globulin Ratio (1.0-2.2) Urine Color YELLOW Urine Clarity CLEAR (CLEAR) Urine pH 7.0 (5.0-7.5) PH Ur Specific [place] 1.010 (1.002-1.030) Urine Protein NEGATIVE (NEGATIVE) mg/dL Urine Glucose (UA) NEGATIVE (NEGATIVE) mg/dL Urine Ketones NEGATIVE (NEGATIVE) mg/dL Urine Occult Blood MODERATE H (NEGATIVE) Urine Nitrite NEGATIVE (NEGATIVE) Urine Bilirubin NEGATIVE (NEGATIVE) Urine Urobilinogen 0.2 (NORMAL) (NORMAL) E.U./dL Ur Leukocyte Esterase NEGATIVE (NEGATIVE) Urine RBC 11-25 H (0-5) /HPF Urine WBC 0-3 (0-5) /HPF Ur Squamous Epith Cells RARE Squamous (<= Few) Urine Bacteria Rare (None Seen) /HPF Ur Microscopic Review INDICATED Urine Culture Comments NOT INDICATED Urine Creatinine 68.2 mg/dL Ur Total Protein Timed 10 mg/dL Protein/Creatinin Ratio 0.1 (<=0.2)
[2022-01-15 00:40] VITALS: BP 127/77
== END 2022-01-15 00:50 | disposition home or self-care (01) ==
LOC: WFO 21:05 → FBP 21:06 → WFO 01-15 00:50
PROVIDERS: ATTEND Obstetrics & Gynecology
DX: O99.891 Other specified diseases and conditions complicating pregnancy (principal); R10.31 Right lower quadrant pain; N13.30 Unspecified hydronephrosis; Z3A.22 22 weeks gestation of pregnancy; R03.0 Elevated blood-pressure reading, without diagnosis of hypertension; N20.0 Calculus of kidney
CPT/HCPCS: 80053; 81001; 81003; 82570; 83605; 84156; 85025; 87086; 99215

== ENCOUNTER 2022-01-15 16:48 | Outpatient (CLI) | payer OTHER ==
--- NOTE | 2022-01-16 15:38 | Ultrasound Report ---
PROCEDURE: OB F/U or Repeat INDICATIONS: SUPERVISON OF HIGH RISK OUTSIDE/PRIOR DATING DATA: Last menstrual period (LMP): 04/30/2022. LMP-based estimated date of delivery (MATEO): 07/24/2021. First dating scan (date and location): 10/27/2021. Estimated date of delivery (MATEO) from first dating scan: 05/15/2022. The below data below was generated using the ultrasound MATEO of 05/15/2022 TECHNIQUE: Real-time scanning was performed of the fetus, with image documentation and biometric measurements. COMPARISON: OB ultrasound 01/02/2022, FINDINGS: General: A single living intrauterine gestation is present. Presentation: Transverse Placenta: Placental position is anterior, without previa. Amniotic fluid index: 14.7 cm, within normal limits for gestational age. Largest pocket 4.1 cm heart rate: 152 beats per minute. Maternal cervical canal: 5.4 cm long; normal length is 2.5 cm or more. biometrics: Estimated gestational age from initial scan: 22 weeks 6 days Other: Spine is within normal limits. Maternal right ovarian turmoil is again noted, unchanged. IMPRESSION: Single live intrauterine with ultrasound gestational age of 22 weeks 6 days. Spine is within normal limits. Reviewed by: Nelsy Evans MD on 01/16/2022 3:37 PM PDT Approved by: Nelsy Evans MD on 01/16/2022 3:37 PM PDT Station ID: [id number]
== END 2022-01-15 16:49 | disposition home or self-care (01) ==
LOC: DI 16:48
PROVIDERS: ATTEND Obstetrics & Gynecology
DX: O09.892 Supervision of other high risk pregnancies, second trimester (principal); Z3A.22 22 weeks gestation of pregnancy

== ENCOUNTER 2022-01-17 08:00 | Outpatient (CLI) | payer OTHER | END 2022-01-17 23:59 | disposition home or self-care (01) | LOC: LAB.N 08:00 | PROVIDERS: ATTEND Obstetrics & Gynecology | DX: N20.0 Calculus of kidney (principal) | CPT/HCPCS: 82365 ==

== ENCOUNTER 2022-02-23 08:00 | Outpatient (CLI) | payer SELFPAY ==
[2022-02-23 10:38] LABS: BASOPHILS % (AUTO) 0.3 %; EOSINOPHILS # (AUTO) 0.1 10^3/uL (0.0-0.7); EOSINOPHILS % (AUTO) 0.7 %; HCT - HEMATOCRIT 32.8 % (37.0-47.0); HGB - HEMOGLOBIN 11.1 g/dL (12.0-16.0); LYMPHOCYTES # (AUTO) 1.6 10^3/uL (1.5-3.5); LYMPHOCYTES % (AUTO) 13.9 %; MEAN CORPUSCULAR HEMOGLOBIN 29.9 pg (27.0-31.0); MEAN CORPUSCULAR HGB CONC 33.8 g/dL (32.0-36.0); MEAN CORPUSCULAR VOLUME 88.4 fL (81.0-99.0); MEAN PLATELET VOLUME 9.4 fL (7.9-10.8); MONOCYTES # (AUTO) 0.7 10^3/uL (0.0-1.0); MONOCYTES % (AUTO) 6.2 %; NEUTROPHILS # (AUTO) 8.8 10^3/uL (1.5-6.6); NEUTROPHILS % (AUTO) 78.1 %; PLT - PLATELET COUNT 204 10^3/uL (130-450); RED BLOOD COUNT 3.71 10^6/uL (4.20-5.40); RED CELL DISTRIBUTION WIDTH 13.4 % (12.0-15.0); WHITE BLOOD COUNT 11.2 x10^3/uL (4.8-10.8)
== END 2022-02-23 23:59 | disposition home or self-care (01) ==
LOC: LAB 08:00
PROVIDERS: ATTEND Obstetrics & Gynecology
DX: O09.892 Supervision of other high risk pregnancies, second trimester (principal)
CPT/HCPCS: 36415; 82950; 85025

== ENCOUNTER 2022-03-02 08:00 | Outpatient (CLI) | payer SELFPAY ==
[2022-03-02 08:37] LABS: GTT GLUCOSE,FASTING 97 mg/dL (70-100)
== END 2022-03-02 08:01 | disposition home or self-care (01) ==
LOC: LAB 08:00
PROVIDERS: ATTEND Obstetrics & Gynecology
DX: O99.810 Abnormal glucose complicating pregnancy (principal)
CPT/HCPCS: 36415; 82951; 82952

== ENCOUNTER 2022-04-10 20:51 | Outpatient (CLI) | payer OTHER ==
--- NOTE | 2022-04-11 19:05 | Ultrasound Report ---
PROCEDURE: OB F/U or Repeat INDICATIONS: SUPERVISION OF OUTSIDE/PRIOR DATING DATA: Last menstrual period (LMP): 04/30/2022. LMP-based estimated date of delivery (MATEO): 07/24/2021. First dating scan (date and location): 10/27/2021. Estimated date of delivery (MATEO) from first dating scan: 05/15/2022. TECHNIQUE: Real-time scanning was performed of the fetus, with image documentation and biometric measurements. Endovaginal scanning: None COMPARISON: None. FINDINGS: General: A single living intrauterine gestation is present. Presentation: Transverse Placenta: Placental position is anterior, without previa. Amniotic fluid index: 19.1 cm, 77.9 percentile for gestational age. heart rate: 126 beats per minute. Maternal cervical canal: Nonvisualized biometrics: Biparietal diameter: 8.6 cm, 34 week 5 day Head circumference: 32.0 cm, 36 week 1 day Abdominal circumference: 30.3 cm, 34 week 2 day Femur length: 6.6 cm, 34 week 1 day Estimated gestational age from initial scan: 35 week 0 day Composite gestational age from present scan: 34 week 6 day Estimated weight and percentile: 2243 g, 32nd percentile Measurement variability in biometric dating: +/- 10 days from 12-20 weeks gestation, +/- 2 weeks from 20-30 weeks gestation, +/- 3 weeks at 30 weeks gestation or more. Other: Right-sided maternal dermoid again noted unchanged IMPRESSION: 1. Single live intrauterine corresponds with a 34 week 6 day gestation by current ultrasoun d 2. Estimated weight 2243 g, 32nd percentile Reviewed by: Vish Gilbert MD on 04/11/2022 6:04 PM PANTERA Approved by: Vish Gilbert MD on 04/11/2022 6:04 PM PANTERA Station ID: [id number]
== END 2022-04-10 20:52 | disposition home or self-care (01) ==
LOC: DI 20:51
PROVIDERS: ATTEND Obstetrics & Gynecology
DX: O09.892 Supervision of other high risk pregnancies, second trimester (principal); Z3A.34 34 weeks gestation of pregnancy

== ENCOUNTER 2022-04-18 08:00 | Outpatient (CLI) | payer OTHER | END 2022-04-18 23:59 | disposition home or self-care (01) | LOC: LAB.WC 08:00 | PROVIDERS: ATTEND Obstetrics & Gynecology | DX: Z36.85 Encounter for antenatal screening for Streptococcus B (principal) | CPT/HCPCS: 87797 ==

== ENCOUNTER 2022-05-01 16:49 | Outpatient (CLI) | payer SELFPAY ==
[2022-05-01 20:46] LABS: BILIRUBIN,URINE NEGATIVE (NEGATIVE); GLUCOSE, URINE (UA) NEGATIVE (NEGATIVE); KETONES,URINE (UA) NEGATIVE (NEGATIVE); LEUKOCYTE ESTERASE, URINE NEGATIVE (NEGATIVE); NITRITE,URINE NEGATIVE (NEGATIVE); OCCULT BLOOD,URINE NEGATIVE (NEGATIVE); PROTEIN,URINE NEGATIVE (NEGATIVE); UROBILINOGEN,URINE 0.2 (NORMAL) E.U./dL (NORMAL)
[2022-05-01 20:57] LABS: CLARITY,URINE CLEAR (CLEAR)
[2022-05-01 20:58] LABS: BACTERIA,URINE Rare /HPF (None Seen); RBC,URINE None Seen /HPF (0-5); SQUAMOUS EPITHELIAL CELL,UR MANY Squamous (<= Few); WBC,URINE 0-3 /HPF (0-5)
== END 2022-05-01 16:50 | disposition home or self-care (01) ==
LOC: LAB.N 16:49
PROVIDERS: ATTEND Obstetrics & Gynecology
DX: N92.0 Excessive and frequent menstruation with regular cycle (principal)
CPT/HCPCS: 81001; 87086

== ENCOUNTER 2022-05-07 09:53 | Outpatient (CLI) | payer OTHER ==
[2022-05-07 10:14] LABS: BASOPHILS % (AUTO) 0.3 %; EOSINOPHILS # (AUTO) 0.1 10^3/uL (0.0-0.7); EOSINOPHILS % (AUTO) 0.8 %; HCT - HEMATOCRIT 38.8 % (37.0-47.0); HGB - HEMOGLOBIN 13.1 g/dL (12.0-16.0); LYMPHOCYTES # (AUTO) 2.1 10^3/uL (1.5-3.5); LYMPHOCYTES % (AUTO) 21.4 %; MEAN CORPUSCULAR HGB CONC 33.8 g/dL (32.0-36.0); MEAN CORPUSCULAR VOLUME 88.8 fL (81.0-99.0); MEAN PLATELET VOLUME 9.5 fL (7.9-10.8); MONOCYTES # (AUTO) 0.6 10^3/uL (0.0-1.0); MONOCYTES % (AUTO) 6.4 %; NEUTROPHILS # (AUTO) 6.9 10^3/uL (1.5-6.6); PLT - PLATELET COUNT 226 10^3/uL (130-450); RED BLOOD COUNT 4.37 10^6/uL (4.20-5.40); RED CELL DISTRIBUTION WIDTH 13.6 % (12.0-15.0); WHITE BLOOD COUNT 9.8 x10^3/uL (4.8-10.8)
== END 2022-05-07 09:54 | disposition home or self-care (01) ==
LOC: LAB 09:53
PROVIDERS: ATTEND Obstetrics & Gynecology
DX: Z01.812 Encounter for preprocedural laboratory examination (principal); O34.211 Maternal care for low transverse scar from previous cesarean delivery; O24.919 Unspecified diabetes mellitus in pregnancy, unspecified trimester
CPT/HCPCS: 36415; 85025; 86850; 86900; 86901

== ENCOUNTER 2022-05-08 03:50 | Inpatient (IN) | payer OTHER ==
[~2022-05-08 03:50] MED LIST: CARBOPROST TROMETHAMINE 250 MCG/ML AMP IM PRN; LABETALOL 20 MG/4 ML SYRINGE IVP PRN; NIFEdipine 10 MG CAPSULE PO PRN; OXYTOCIN 10 UNIT/ML VIAL IM PRN; OXYTOCIN/SODIUM CHLORIDE 500 ML IV PRN; SODIUM CHLORIDE FLUSH 0.9% 10 ML SYRINGE IVP PRN; TRANEXAMIC ACID IN NACL 1,000 MG/100 ML BAG IV PRN; hydrALAZINE INJ 20 MG/ML VIAL IVP PRN; miSOPROStoL 200 MCG TABLET PR PRN
[2022-05-08] MEDS ORDERED: SODIUM CHLORIDE FLUSH 0.9% 10 ML SYRINGE IVP SCH ×2 (04:00→17:00)
[2022-05-08] MEDS ORDERED: LACTATED RINGERS 1,000 ML IV SCH ×3 (04:00→10:00)
--- NOTE | 2022-05-08 04:56 | HISTORY & PHYSICAL EXAMINATION ---
Admit History - : 2 Parity: 1 Care: positive: [facility] Complications This : positive: None (Patient is a at 39 weeks presenting with contractions that started last night at 7pm. Contract ions are occuring every 10 minutes. Positive movement. Denies vaginal bleeding and leakage of fluid. History of GDMA and GHTN during previous .) Smoking Status: Never smoker Meds/Allgy - Home Medications Home Medications: Ambulatory Orders Medication Instructions Recorded Confirmed Acetaminophen [Tylenol] 1,000 mg PO Q6H PRN tablet 01/14/22 Aspirin EC [Ecotrin] 81 mg PO DAILYWM tablet 01/14/22 Docusate Sodium 100Mg Capsule 100 mg PO BID 01/14/22 [Colace 100Mg Capsule] Ondansetron Odt [Zofran Odt] 8 mg TL Q8H PRN #30 tablet 01/14/22 cephALEXin [Keflex] 500 mg PO Q6H #32 cap 01/14/22 oxyCODONE [Roxicodone] 2.5 - 5 mg PO Q4H PRN #20 tablet 01/14/22 - Allergies Allergies/Adverse Reactions: Allergies Allergy/AdvReac Type Severity Reaction Status Date / Time No Known Drug Allergies Allergy Verified 07/24/20 11:28 Review of Systems - Constitutional Constitutional: reports: Fatigue - Eyes Eyes: denies: Spots in vision - Cardiovascular Cariovascular: denies: Chest pain - Respiratory Respiratory: denies: SOB at rest - Gastrointestinal Gastrointestinal: denies: Abdominal pain - All Other Systems All Other Systems: reports: Reviewed and negative Physical - Abdominal Exam Vital Signs: Temp Pulse Resp BP Pulse Ox O2 Flow Rate 98.2 F 82 20 135/85 H 97 05/08/22 04:29 05/08/22 04:29 05/08/22 04:29 05/08/22 04:29 05/08/22 04:02 Contraction Frequency (min/apart): every 10 minutes Contraction Intensity: positive: Mild to moderate Uterine Resting Tone: positive: Soft - Monitoring Strip Review: positive: Category I - Presentation Presentation: positive: Vertex - Vaginal Exam Membranes: positive: Membranes intact Plan for Labor - Plan For Labor I expect patient to be DC'd or transferred within 96 hours.: No Plan for Labor: at 39 weeks, scheduled for today 1. wellbeing is reassuring 2. admit for repeat section 3. risks, benefits and alternatives discussed and all questions answered.
[2022-05-08 05:18] LABS: ALBUMIN/GLOBULIN RATIO 0.8 (1.0-2.2); BILIRUBIN,TOTAL 0.3 mg/dL (0.2-1.0); CALCIUM 9.6 mg/dL (8.5-10.3); CREATININE 0.7 mg/dL (0.4-1.0); POTASSIUM 3.6 mmol/L (3.5-5.0)
[2022-05-08] MEDS ORDERED: ONDANSETRON 4 MG/2 ML VIAL ONE (07:37)
[2022-05-08] MEDS ORDERED: OXYTOCIN 10 UNIT/ML VIAL ONE (07:38)
[2022-05-08] MEDS ORDERED: fentaNYL 100 MCG/2 ML VIAL ONE (07:44)
--- NOTE | 2022-05-08 08:01 | ANESTHESIA ---
Pre-Anesthesia VS, & Labs - Diagnosis Previous - Procedure Vital Signs: Temp Pulse Resp BP Pulse Ox O2 Flow Rate 36.8 C 82 20 135/85 H 97 05/08/22 04:29 05/08/22 04:29 05/08/22 04:29 05/08/22 04:29 05/08/22 04:02 Height: 5 ft 7 in Weight (kg): 86.636 kg Body Mass Index: 29.9 BMI Classification: Overweight - NPO >8 hours - Is Patient ?: Yes - Lab Results Current Lab Results: Laboratory Tests 05/08/22 04:38: Sodium 133 L, Potassium 3.6, Chloride 102, Carbon Dioxide 22, Anion Gap 9.0, BUN 27 H, Creatinine 0.7, Estimated GFR (MDRD) 95, Glucose 100, Calcium 9.6, Total Bilirubin 0.3, AST 25, ALT 31, Alkaline Phosphatase 115, Total Protein 7.0, Albumin 3.0 L, Globulin 4.0, Albumin/Globulin Ratio 0.8 L Fish Bones: 05/08/22 04:38 Home Medications and Allergies Active Medications Carboprost Tromethamine (Carboprost Tromethamine 250 Mcg/Ml Amp) 250 mcg IM .ONCE PRN PRN Reason: Hemorrhage Hydralazine HCl (Hydralazine Inj 20 Mg/Ml Vial) 5 - 10 mg IVP Q20M PRN; Protocol PRN Reason: SBP> or= 160 OR DBP> or= 110 Hydralazine HCl (Hydralazine Inj 20 Mg/Ml Vial) 10 mg IVP .ONCE PRN; Protocol PRN Reason: SBP> or= 160 OR DBP> or= 110 Oxytocin/Sodium Chloride (Pitocin/Sodium Chloride) 500 mls @ 999 mls/hr IV PRN PRN; Protocol PRN Reason: POST- HEMORR PREVENTION Tranexamic Acid (Tranexamic 1,000 Mg/100ml-Nacl) 1,000 mg in 100 mls @ 600 mls/hr IV Q30M PRN PRN Reason: EBL >1200mL and within 3hr Lactated Ringer's (Lr) 1,000 mls @ 125 mls/hr IV .Q8H RUSSELL Last Admin: 05/08/22 04:40 Dose: 125 mls/hr Labetalol HCl (Labetalol 20 Mg/4 Ml Syringe) 20 - 80 mg IVP Q10M PRN; Protocol PRN Reason: SBP> or= 160 OR DBP> or= 110 Labetalol HCl (Labetalol 20 Mg/4 Ml Syringe) 20 mg IVP .ONCE PRN; Protocol PRN Reason: SBP> or= 160 OR DBP> or= 110 Labetalol HCl (Labetalol 20 Mg/4 Ml Syringe) 20 - 40 mg IVP Q10M PRN; Protocol PRN Reason: SBP> or= 160 OR DBP> or= 110 Misoprostol (Misoprostol 200 Mcg Tablet) 800 mcg PA .ONCE PRN PRN Reason: Hemorrhage Nifedipine (Nifedipine 10 Mg Capsule) 10 - 20 mg PO Q20M PRN; Protocol PRN Reason: SBP> or= 160 OR DBP> or= 110 Oxytocin (Oxytocin 10 Unit/Ml Vial) 10 unit IM .ONCE PRN PRN Reason: Step One if no IV access. Sodium Chloride (Sodium Chloride Flush 0.9% 10 Ml Syringe) 10 ml IVP PRN PRN PRN Reason: NEEDED PER PROVIDER ORDERS Sodium Chloride (Sodium Chloride Flush 0.9% 10 Ml Syringe) 10 ml IVP Q8H RUSSELL Allergies/Adverse Reactions: Allergies Allergy/AdvReac Type Severity Reaction Status Date / Time No Known Drug Allergies Allergy Verified 07/24/20 11:28 Anes History & Medical History - Anesthetic History Anesthesia Complications: reports: No previous complications Family history of Anesthesia Complications: Denies Family history of Malignant Hyperthermia: Denies - Medical History Cardiovascular: reports: Hypertension (Gestational) Pulmonary: reports: None, Other (Snores) Gastrointestinal: reports: GERD (Chronic) Urinary: reports: None Neuro: reports: None Musculoskeletal: reports: None Endocrine/Autoimmune: reports: Type 2 diabetes Blood Disorders: reports: None Smoking Status: Never smoker Psychosocial: reports: No issues indicated History of Cancer?: No - Obstetrical History : 2 Parity: 1 Complications: reports: None (Patient is a at 39 weeks presenting with contractions that started last night at 7pm. Contractions are occuring every 10 minutes. Positive movement. Denies vaginal bleeding and leakage of fluid. History of GDMA and GHTN during previous .) Exam General: Alert, Oriented x3, Cooperative, No acute distress Dental: WNL Mouth Openin Fingerbreadth Mallampati classification: II Thyromental Distance: 4-6 cm Mental/Cognitive Status: Alert/Oriented X3, Normal for patient Cognitive Status: Within normal limits Plan Anesthesia Type: Spinal, Transverse Abdominis Plane (TAP) Block Consent for Procedure(s) Verified and Reviewed: No Code Status: Attempt Resuscitation ASA classification: 2-Mild systemic disease Is this case an emergency?: No
[2022-05-08] MEDS ORDERED: ROPIVACAINE 0.5% PF 20 ML VIAL ONE ×2 (08:43)
[2022-05-08] MEDS ORDERED: DEXAMETHASONE 4 MG/ML VIAL ONE (08:44)
[2022-05-08] MEDS ORDERED: SODIUM CHLORIDE 0.9% 10 ML VIAL IVP ONE (08:46)
[2022-05-08] MEDS ORDERED: KETOROLAC 30 MG/ML VIAL ONE (08:54)
[2022-05-08] MEDS ORDERED: SODIUM CHLORIDE FLUSH 0.9% 10 ML SYRINGE IVP PRN (09:29)
[2022-05-08] MEDS ORDERED: SIMETHICONE CHEW 80 MG TABLET PO PRN (09:29)
[2022-05-08] MEDS ORDERED: ONDANSETRON ODT 4 MG TABLET TL PRN (09:29)
[2022-05-08] MEDS ORDERED: OXYTOCIN/SODIUM CHLORIDE 500 ML IV PRN (09:29)
--- NOTE | 2022-05-08 09:38 | OPERATIVE REPORT ---
Operative Report - General Admit Date: 05/08/22 Procedure Date: 05/08/22 Planned Procedure: Repeat low-transverse section Pre-Op Diagnosis: Previous low transverse section, 39 weeks gestation Procedure Performed: Repeat low-transverse section Post Op Diagnosis: Status post repeat low-transverse section - Procedure Note Primary Surgeon: Olvin Richardson MD Secondary Surgeon: MILAGRO Jordan, Genna Goldberg MD Anesthesia Provider: Mary Bill CRNA Anesthesia Technique: Spinal Pathology: None IV Fluids (mL): 2,100 Estimated Blood Loss (mL): 700 Urine Output (mL): 300 Complications: none - Other Other Information/Narrative: section was recommended. Risks, benefits and alternatives were discussed including but not limited to infection, bleeding that may require blood products or hysterectomy for life saving measures, injury to surrounding organs including but not limited to bowel, bladder, ureters, tubes and ovaries and/or the baby. Should injury occur it could require longer/additional surgery to repair. The patient stated understanding and desired to proceed. All questions were answered posed by patient. Prior to being taken to the OR, 2 grams of cefazolin IV was administered. The patient was taken to the operating room where regional anesthesia was found to be adequate. She was then prepared and draped in the usual sterile fashion in the dorsal supine position with a leftward tilt displacing the uterus. Guo was draining to gravity. SCDs were on bilateral lower extremities. A pfannenstiel skin incision was then made with the scalpel and carried through to the underlying layer of fascia. The fascia was incised in the midline and the incision extended laterally with the Bacon scissors. The superior aspect of the facial incision was then grasped with the Sis clamps, elevated and the underlying rectus muscles dissected off sharply. Attention was then turned to the inferior aspect of this incision which in a similar fashion was grasped, elevated with the Sis clamps and the rectus muscle dissected off sharply. The rectus muscles were in the midline. The peritoneum identified, grasped with the pick-ups and entered sharply with the Metzenbaum scissors. The peritoneal incision was then extended superiorly and inferiorly with good visualization of the bladder. The bladder blade was inserted. The vesicouterine peritoneum was identified, grasped with the pick-ups, and entered sharply with Metzenbaum scissors. This incision was then extended laterally and the bladder flap created digitally. The bladder blade was reinserted. The lower uterine segment was identified and incised in a transverse fashion wi th the scalpel. The uterine incision was then extended bluntly laterally. Artificial rupture of membranes demonstrated clear fluid. The bladder blade was removed. The fetus was in a cephalic presentation. The infants head delivered atraumatically. The anterior shoulders were delivered followed by the posterior shoulders then the remainder of the body. The infants mouth and nose were bulb suctioned. The umbilical cord was clamped times two and cut. The was handed to the pediatric team. Cord blood gases were obtained. The placenta was removed with gentle traction. Oxytocin were added to IVF and allowed to run freely. The uterus was exteriorized and cleared of all clots and debris. The uterine incision was inspected and found to be without any extensions and was repaired with 0 Vicryl in a running, locked fashion. A second imbricating layer was performed. 2 additional [id number] sutures were used to make the hysterotomy hemostatic. Upon inspection, the repaired hysterotomy was found to be hemostatic. The uterus was firm and returned to the abdomen. The gutters were cleared of all clots and debris. The fascia was reapproximated with 0 Vicryl in a running fashion. The subcutaneous tissue was closed with 2-0 Vicryl. The skin was closed in a subcuticular fashion with 4-0 Monocryl. The patient tolerated the procedure well. Sponge, lap and needle counts were correct times three. The patient was taken to the recovery room in stable condition. I appreciate the assistance of MILAGRO Jordan during this procedure, and the assistance in retraction, visualization, dissection, and overall assistance during the case were instrumental to the patient's wellbeing.
[2022-05-08] MEDS ORDERED: LACTATED RINGERS 200 ML IV ONE (09:45)
[2022-05-08] MEDS ORDERED: ATROPINE ABBOJECT 1 MG/10 ML SYRINGE IVP PRN (10:00)
[2022-05-08] MEDS ORDERED: MORPHINE 2 MG/ML CARPUJECT IVP PRN (10:00)
[2022-05-08] MEDS ORDERED: HYDROmorphone 0.5 MG/0.5 ML SYRINGE IVP PRN (10:00)
[2022-05-08] MEDS ORDERED: ePHEDrine 50 MG/ML VIAL IVP PRN (10:00)
[2022-05-08] MEDS ORDERED: METOCLOPRAMIDE 10 MG/2 ML VIAL IVP PRN (10:00)
[2022-05-08] MEDS ORDERED: NALOXONE 0.4 MG/ML VIAL IVP PRN (10:00)
[2022-05-08] MEDS ORDERED: fentaNYL 100 MCG/2 ML VIAL IVP PRN (10:00)
[2022-05-08] MEDS ORDERED: ONDANSETRON 4 MG/2 ML VIAL IVP PRN (10:00)
--- NOTE | 2022-05-08 13:35 | ANESTHESIA POST OP EVALUATION ---
Anesthesia Post Eval - Post Anesthesia Eval Vitals: Last Vital Signs Temp 36.5 C 05/08/22 11:50 Pulse 60 05/08/22 11:50 Resp 16 05/08/22 11:50 BP 129/80 05/08/22 11:50 Pulse Ox 98 05/08/22 11:50 O2 Flow Rate CV Function Including HR & BP: Stable Pain Control: Satisfactory Nausea & Vomiting: Negative Mental Status: Baseline Respiratory Status: Airway Patent Hydration Status: Satisfactory Anesthesia Complications: None
[2022-05-08] MEDS: KETOROLAC 30 MG/ML VIAL IVP SCH ×2 (14:36→20:07)
[2022-05-08] MEDS: ACETAMINOPHEN 500 MG TABLET PO SCH ×2 (14:37→22:29)
[2022-05-08] MEDS: oxyCODONE 5 MG TABLET PO PRN ×2 (18:34→22:29)
[2022-05-08] MEDS: DOCUSATE SODIUM 100 MG CAPSULE PO SCH (20:07)
[2022-05-09] MEDS: KETOROLAC 30 MG/ML VIAL IVP SCH (02:29)
[2022-05-09] MEDS: oxyCODONE 5 MG TABLET PO PRN ×6 (02:36→22:33)
[2022-05-09 06:17] LABS: BASOPHILS % (AUTO) 0.3 %; EOSINOPHILS # (AUTO) 0.1 10^3/uL (0.0-0.7); HCT - HEMATOCRIT 30.9 % (37.0-47.0); HGB - HEMOGLOBIN 10.3 g/dL (12.0-16.0); LYMPHOCYTES # (AUTO) 3.4 10^3/uL (1.5-3.5); LYMPHOCYTES % (AUTO) 22.9 %; MEAN CORPUSCULAR HEMOGLOBIN 29.6 pg (27.0-31.0); MEAN CORPUSCULAR HGB CONC 33.3 g/dL (32.0-36.0); MEAN CORPUSCULAR VOLUME 88.8 fL (81.0-99.0); MEAN PLATELET VOLUME 9.4 fL (7.9-10.8); MONOCYTES % (AUTO) 6.7 %; NEUTROPHILS % (AUTO) 67.8 %; PLT - PLATELET COUNT 215 10^3/uL (130-450); RED BLOOD COUNT 3.48 10^6/uL (4.20-5.40); RED CELL DISTRIBUTION WIDTH 13.8 % (12.0-15.0); WHITE BLOOD COUNT 14.7 x10^3/uL (4.8-10.8)
[2022-05-09] MEDS: ACETAMINOPHEN 500 MG TABLET PO SCH ×3 (06:41→22:33)
[2022-05-09] MEDS: IBUPROFEN 600 MG TABLET PO SCH ×3 (08:32→20:06)
[2022-05-09] MEDS: DOCUSATE SODIUM 100 MG CAPSULE PO SCH ×2 (08:32→20:05)
--- NOTE | 2022-05-09 10:02 | PROVIDER PROGRESS NOTE ---
Subjective - Prog Note Date Prog Note Date: 05/09/22 - Subjective Subjective: Ankle subjective Patient reports she is doing well. Lochia appropriate. Denies heavy bleeding. Ambulating. Pelvic and abdominal pain well-controlled. Tolerating oral intake. Diet: Regular. Voiding without difficulty. Passing flatus. Denies BM. Patient is bonding with baby in room Breast feeding going well. Denies feeling lightheaded, dizzy or excessively fatigued. Objective General: Alert, oriented, no apparent distress. Cardiovascular: Regular rate. Regular rhythm. Lungs: No increased work of breathing. Abdomen: Uterus firm. Below umbilicus. No guarding or rebound. Incision: Clean, dry, and intact. Bandage removed. Assessment and Plan day 1. -Routine care -Anticipate discharge tomorrow Status post repeat low-transverse section -Bandage removed today. Incision intact and clean. Objective - Vital Signs/Intake & Output Vital Signs: Vital Signs x48h Temp Pulse Resp BP Pulse Ox 05/09/22 08:12 98.2 F 87 18 122/84 H 98 05/09/22 04:25 98.2 F 73 16 122/76 96 Intake & Output: Intake & Output 05/06/22 05/07/22 05/08/22 05/09/22 23:59 23:59 23:59 23:59 Intake Total 2670 500 Output Total 1605 1475 Balance 1065 -975 - Lab Results Fish Bones: 05/09/22 06:09 05/08/22 04:38 Other Labs: Lab Results x24hrs 05/09/22 Range/Units 06:09 WBC 14.7 H (4.8-10.8) x10^3/uL RBC 3.48 L (4.20-5.40) 10^6/uL Hgb 10.3 L (12.0-16.0) g/dL Hct 30.9 L (37.0-47.0) % MCV 88.8 (81.0-99.0) fL MCH 29.6 (27.0-31.0) pg MCHC 33.3 (32.0-36.0) g/dL RDW 13.8 (12.0-15.0) % Plt Count 215 (130-450) 10^3/uL MPV 9.4 (7.9-10.8) fL Neut # (Auto) 10.0 H (1.5-6.6) 10^3/uL Lymph # (Auto) 3.4 (1.5-3.5) 10^3/uL [place] # (Auto) 1.0 (0.0-1.0) 10^3/uL Eos # (Auto) 0.1 (0.0-0.7) 10^3/uL Baso # (Auto) 0.0 (0.0-0.1) 10^3/uL Absolute Nucleated RBC 0.00 x10^3/uL Nucleated RBC % 0.0 /100WBC
[2022-05-10] MEDS: IBUPROFEN 600 MG TABLET PO SCH ×2 (02:33→08:28)
[2022-05-10] MEDS: oxyCODONE 5 MG TABLET PO PRN ×2 (02:34→06:30)
[2022-05-10] MEDS: ACETAMINOPHEN 500 MG TABLET PO SCH (06:29)
[2022-05-10] MEDS: KETOROLAC 30 MG/ML VIAL IVP SCH (06:59)
[2022-05-10] MEDS: DOCUSATE SODIUM 100 MG CAPSULE PO SCH (08:28)
--- NOTE | 2022-05-10 08:50 | Discharge Plan ---
Discharge Plan Problem Reviewed?: Yes Disposition: Home, Self Care Condition: Good Prescriptions: Docusate Sodium 100Mg Capsule [Colace 100Mg Capsule] 100 - 200 mg PO BID PRN #60 cap PRN Reason: Constipation oxyCODONE [Roxicodone] 2.5 - 5 mg PO Q4H PRN #24 tablet PRN Reason: Severe Pain Diet: Regular Activity Restrictions: Additional Comments Shower Restrictions: No Driving Restrictions: Yes (For 2 weeks or while taking opioid pain medications) Instruction Topics: C Section Dc No Smoking: If you smoke, Please STOP! Call for help. Follow-up with: Olvin Richardson MD [Provider Admit Priv/Credential] -
--- NOTE | 2022-05-10 08:52 | DISCHARGE SUMMARY ---
Discharge Summary Admit Date: 05/08/22 Discharge Date: 05/10/22 Discharging Provider: Olvin Richardson MD Code Status: Attempt Resuscitation Condition at Discharge: Good Discharge Disposition: 01 Home, Self Care - DIAGNOSES Admission Diagnoses: 39 weeks gestation Previous low transverse section - HPI History of Present Illness: Subjective Patient reports she is doing well. Lochia appropriate. Denies heavy bleeding. Ambulating. Pelvic and abdominal pain well-controlled. Tolerating oral intake. Diet: Regular. Voiding without difficulty. Passing flatus. Denies BM. Patient is bonding with baby in room Breast feeding going well. Denies feeling lightheaded, dizzy or excessively fatigued. Objective General: Alert, oriented, no apparent distress. Cardiovascular: Regular rate. Regular rhythm. Lungs: No increased work of breathing. Abdomen: Uterus firm. Below umbilicus. No guarding or rebound. Incision: Clean, dry, and intact. - HOSPITAL COURSE Hospital Course: Patient admitted for planned repeat low-transverse section at 39 weeks. Surgery was uneventful and patient had minimal scar tissue. She gave to a healthy weighing 2577 g. course was uneventful and she was discharged on postoperative day 2. - ALLERGIES Allergies/Adverse Reactions: Allergies Allergy/AdvReac Type Severity Reaction Status Date / Time No Known Drug Allergies Allergy Verified 07/24/20 11:28 - MEDICATIONS Home Medications: Ambulatory Orders Medication Instructions Recorded Confirmed Acetaminophen [Tylenol] 1,000 mg PO Q8H tab 05/10/22 Docusate Sodium 100Mg Capsule 100 - 200 mg PO BID PRN #60 cap 05/10/22 [Colace 100Mg Capsule] Ibuprofen [Motrin] 600 mg PO Q6H tab 05/10/22 oxyCODONE [Roxicodone] 2.5 - 5 mg PO Q4H PRN #24 tablet 05/10/22 - LABS Result Diagrams: 05/09/22 06:09 05/08/22 04:38 - FOLLOW UP Follow Up: With Olvin Richardson MD at [facility] in 1 to 2 weeks. - TIME SPENT Time Spent in Discharge (Minutes): 20
[2022-05-10 12:14] VITALS: BP 126/81
--- NOTE | 2022-05-10 13:04 | Labor Flowsheet ---
Labor Flowsheet Datetime Report Generated by CPN: 05/10/2022 13:03 Datetime: 05/10/2022 11:21 VITAL SIGNS NBP Sys/Radha/Mean (mmHg): 126 : 81 : 90 Pulse: 86 Datetime: 05/09/2022 11:35 SpO2 (%): 98 Datetime: 05/08/2022 04:38 PATIENT CARE IV/Blood Work: IV Started; IV Bolus Started; Labs Drawn with IV Start Patient Care Comments: CMP
== END 2022-05-10 13:03 | disposition home or self-care (01) | DRG 788 ==
LOC: FBP 03:50
PROVIDERS: ADMIT Obstetrics & Gynecology; ATTEND Obstetrics & Gynecology
PROC: 10D00Z1 Extraction of Products of Conception, Low, Open Approach (ICD-10-PCS; principal; 2022-05-08 07:30)
DX: O34.211 Maternal care for low transverse scar from previous cesarean delivery (principal); Z3A.39 39 weeks gestation of pregnancy; Z37.0 Single live birth; Z86.32 Personal history of gestational diabetes
CPT/HCPCS: 36415; 80053; 85025; A9270; J2795; J7040; J7120